=== PATIENT | male | born 1940 | race Caucasian/White ===

== ENCOUNTER 2016-06-24 11:56 | Outpatient (CLI) | payer MEDICARE | END 2016-06-24 11:57 | disposition home or self-care (01) | LOC: LAB.S 11:56 | PROVIDERS: ATTEND Emergency Medicine | DX: I48.91 Unspecified atrial fibrillation (principal) | CPT/HCPCS: 85610 ==

== ENCOUNTER 2016-08-24 08:21 | Outpatient (CLI) | payer MEDICARE | END 2016-08-24 08:22 | disposition short-term general hospital (02) | LOC: EMS 08:21 | PROVIDERS: ATTEND Surgery | DX: M54.9 Dorsalgia, unspecified (principal) | CPT/HCPCS: A0170; A0425; A0427 ==

== ENCOUNTER 2016-09-13 09:54 | Outpatient (CLI) | payer MEDICARE ==
[2016-09-13 17:48] LABS: INR 3.2 (0.8-1.2); PT - PROTHROMBIN TIME 36.3 secs (9.9-12.6)
== END 2016-09-13 09:55 | disposition home or self-care (01) ==
LOC: LAB 09:54
PROVIDERS: ATTEND Emergency Medicine
DX: I48.91 Unspecified atrial fibrillation (principal)
CPT/HCPCS: 36415; 85610

== ENCOUNTER 2016-09-17 12:37 | Outpatient (CLI) | payer MEDICARE ==
[2016-09-17 18:09] LABS: INR 3.2 (0.8-1.2)
== END 2016-09-17 12:38 | disposition home or self-care (01) ==
LOC: LAB.F 12:37
PROVIDERS: ATTEND Emergency Medicine
DX: I48.91 Unspecified atrial fibrillation (principal)
CPT/HCPCS: 36415; 85610

== ENCOUNTER 2016-09-23 13:15 | Emergency (ER) | payer MEDICARE ==
--- NOTE | 2016-09-23 13:51 | ED Physician Documentation ---
History of Present Illness - Stated complaint Stated Complaint: THROAT PX - Chief complaint Chief Complaint: Heent - History obtained from History obtained from: Patient - History of Present Illness Timing: How many days ago (10) Pain level max: 3 Pain level now: 2 Quality: aching Improved by: nothing Worsened by: lying down, palpation - Additonal information Additional information: Patient is a 76-year-old male who presents to the emergency department with several complaints. The first is a left-sided headache, that has been present for approximately the last 10 days. Rates it as a scale of 2 out of 10. He states that is worse with palpation of the scalp. Denies any visual changes, but then states that his left eye vision feels "sluggish" He is newly on warfarin for atrial fibrillation. States that he did strike his head on a towel bar a few days ago. Was told by his doctor to come in for a head CT. Patient also complains of a sore throat and left-sided ear pain. Has had some rhinorrhea and congestion. Has a mildly productive cough. Review of Systems Constitutional: denies: Fever, Chills Eyes: denies: Loss of vision, Decreased vision, Photophobia Ears: denies: Loss of hearing, Drainage/discharge Nose: reports: Rhinorrhea / runny nose, Congestion Throat: reports: Sore throat Respiratory: reports: Cough GI: denies: Abdominal Pain, Abdominal Swelling, Diarrhea, Hematemesis : denies: Dysuria Skin: denies: Rash Musculoskeletal: denies: Neck pain, Back pain Neurologic: reports: Headache, Head injury. 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 Cardiovascular: Cardiac catheterization HEENT: Other - Present Medications Home Medications: Ambulatory Orders Medication Instructions Recorded Confirmed Levothyroxine [Synthroid] 25 mcg PO DAILY 06/27/15 09/23/16 Multivitamin [Multivitamins] 1 tab PO DAILY 06/27/15 09/23/16 [place]-3 Fatty Acids [Fish Oil] 1 gm PO DAILY 06/27/15 09/23/16 Tamsulosin [Flomax] 0.4 mg PO DAILY 06/27/15 09/23/16 Warfarin [Coumadin] 7.5 mg PO DAILY 06/27/15 09/23/16 Metoprolol Tartrate 25 mg PO BID 09/23/16 09/23/16 - Allergies Allergies/Adverse Reactions: Allergies Allergy/AdvReac Type Severity Reaction Status Date / Time adhesive tape Allergy Rash Verified 09/29/15 17:21 meperidine HCl * Allergy Itching Verified 09/29/15 17:21 [From Demerol] hydromorphone HCl * AdvReac Unknown Verified 09/29/15 17:21 [From Dilaudid] - Social History Does the pt smoke?: No Smoking Status: Never smoker Does the pt drink ETOH?: No Does the pt have substance abuse?: No - Immunizations Immunizations are current?: Yes PD ED PE NORMAL - Vitals Vital signs reviewed: Yes - General General: Alert and oriented X 3, No acute distress, Well developed/nourished - HEENT HEENT: Atraumatic, PERRL, EOMI, Ears normal, Moist mucous membranes, Pharynx benign, Other (Diffusely tender palpation over the entire left side of the scalp. Not specifically along the temporal artery) - Neck Neck: Supple, no meningeal sign, No bony TTP - Cardiac Cardiac: RRR - Respiratory Respiratory: No respiratory distress, Clear bilaterally - Derm Derm: Warm and dry, No rash - Neuro Neuro: Alert and oriented X 3 - Psych Psych: Normal mood, Normal affect Results - Vitals Vitals: Vital Signs - 24 hr 09/23/16 09/23/16 13:25 14:53 Temperature 36.4 C L Heart Rate 63 56 L Respiratory 18 16 Rate Blood Pressure 130/64 128/64 O2 Saturation 96 95 Oxygen O2 Source Room air - EKG (time done) 1358 Rate: Rate (enter#) (63) Rhythm: NSR [place]: Normal Intervals: Normal [place] QRS: Normal Ischemia: Normal ST segments Computer interpretation: Agree with computer - Labs Labs: Laboratory Tests 09/23/16 09/23/16 09/23/16 14:00 14:00 14:00 WBC 5.9 RBC 4.67 L Hgb 15.1 Hct 44.2 MCV 94.7 H MCH 32.4 H MCHC 34.2 RDW 14.7 Plt Count 119 L MPV 7.7 Neut # 3.6 Lymph # 1.5 [place] # 0.5 Eos # 0.2 Baso # 0.0 Absolute Nucleated RBC 0.00 Nucleated RBCs 0.0 ESR PT 31.1 H INR 2.7 H Sodium 140 Potassium 4.2 Chloride 103 Carbon Dioxide 28 Anion Gap 9.0 BUN 19 Creatinine 1.2 Estimated GFR (MDRD) 59 L Glucose 95 Calcium 9.3 09/23/16 14:00 WBC RBC Hgb Hct MCV MCH MCHC RDW Plt Count MPV Neut # Lymph # [place] # Eos # Baso # Absolute Nucleated RBC Nucleated RBCs ESR 6 PT INR Sodium Potassium Chloride Carbon Dioxide Anion Gap BUN Creatinine Estimated GFR (MDRD) Glucose Calcium - Rads (name of study) head CT Radiology: Prelim report reviewed, EMP read contemporaneously, See rad report ( Mucosal thickening involving the anterior ethmoid air cells and frontal sinuses. Atherosclerosis of the internal carotid arteries. No evidence of an intracranial hemorrhage or depressed skull fracture. ) PD MEDICAL DECISION MAKING - ED course Complexity details: reviewed results, re-evaluated patient, considered differential, d/w patient ED course: Patient is a 76-year-old male who presents to the emergency department with several vague symptoms. He is on warfarin and did strike his head and does have a headache, therefore a CT was performed. No acute abnormality on this. No acute laboratory findings. Sed rate is normal. No evidence of temporal arteritis. No evidence of shingles. No evidence of intracranial hemorrhage. No evidence of vascular injury. He does appear to have sinusitis on CT scan. Is already on fluticasone at home. Will add Zyrtec or Claritin. Normal neurological exam currently. Patient counseled regarding signs and symptoms for which I believe and urgent re-evaluation would be necessary. Patient with good understanding of and agreement to plan and is comfortable going home at this time This document was made in part using voice recognition software. While efforts are made to proofread this document, sound alike and grammatical errors may occur. Departure - Departure Disposition: Home, Self Care Clinical Impression: Scalp tenderness Head injury Qualifiers: Encounter type: initial encounter Qualified Code(s): S09.90XA - Unspecified injury of head, initial encounter Condition: Good Instructions: ED Head Injury Closed Follow-Up: Brian Sneed MD [Primary Care Provider] - Within 1 week Comments: Return if you worsen. You are in normal sinus rhythm today. The cause of your symptoms is unclear, but may related to a viral upper respiratory infection or allergies. Discharge Date/Time: 09/23/16 14:54
[2016-09-23 14:09] LABS: BASOPHILS % (AUTO) 0.6 %; EOSINOPHILS # (AUTO) 0.2 10^3/uL (0.0-0.7); EOSINOPHILS % (AUTO) 3.5 %; HCT - HEMATOCRIT 44.2 % (42.0-52.0); HGB - HEMOGLOBIN 15.1 g/dL (14.0-18.0); LYMPHOCYTES # (AUTO) 1.5 10^3/uL (1.5-3.5); LYMPHOCYTES % (AUTO) 26.2 %; MEAN CORPUSCULAR HEMOGLOBIN 32.4 pg (27.0-31.0); MEAN CORPUSCULAR HGB CONC 34.2 g/dL (32.0-36.0); MEAN CORPUSCULAR VOLUME 94.7 fL (80.0-94.0); MEAN PLATELET VOLUME 7.7 fL (7.4-11.4); MONOCYTES # (AUTO) 0.5 10^3/uL (0.0-1.0); MONOCYTES % (AUTO) 8.3 %; NEUTROPHILS # (AUTO) 3.6 10^3/uL (1.5-6.6); NEUTROPHILS % (AUTO) 61.4 %; RED BLOOD COUNT 4.67 10^6/uL (4.70-6.10); RED CELL DISTRIBUTION WIDTH 14.7 % (12.0-15.0); UNCORRECTED WHITE BLOOD COUNT 5.9 x10^3/uL; WHITE BLOOD COUNT 5.9 x10^3/uL (4.8-10.8)
[2016-09-23 14:15] LABS: INR 2.7 (0.8-1.2); PT - PROTHROMBIN TIME 31.1 secs (9.9-12.6)
[2016-09-23 14:18] LABS: CALCIUM 9.3 mg/dL (8.5-10.3); CREATININE 1.2 mg/dL (0.6-1.2); POTASSIUM 4.2 mmol/L (3.5-5.0)
--- NOTE | 2016-09-23 14:37 | CT Preliminary Report ---
Exam: CT Head W/O IMPRESSION: Mucosal thickening involving the anterior ethmoid air cells and frontal sinuses. Atherosclerosis of the internal carotid arteries. No evidence of an intracranial hemorrhage or depressed skull fracture. [facility] SITE ID: [id number]
--- NOTE | 2016-09-23 14:40 | CT Report ---
EXAM: CT HEAD EXAM DATE: 09/23/2016 02:15 PM. CLINICAL HISTORY: Head injury 1 week ago, cont TEIXEIRA, pt on warfarin. COMPARISON: None. TECHNIQUE: Multiaxial CT images were obtained from the foramen magnum to the vertex. IV contrast: Non e. Reformats: Coronal. In accordance with CT protocol optimization, one or more of the following dose reduction techniques w ere utilized for this exam: automated exposure control, adjustment of mA and/or KV based on patient s ize, or use of iterative reconstructive technique. FINDINGS: Parenchyma: No intraparenchymal hemorrhage. No evidence of mass, midline shift, or CT findings of inf arction. [place]-white differentiation is distinct. Extraaxial Spaces: Normal for age. No subdural or epidural collections identified. Ventricles: Normal in size and position. Sinuses: There is mucosal thickening involving anterior ethmoid air cells. Mucosal thickening is seen involving the frontal sinuses. Bones: No evidence of fracture or calvarial defect. Other: There is atherosclerosis of the internal carotid arteries. IMPRESSION: Mucosal thickening involving the anterior ethmoid air cells and frontal sinuses. Atherosclerosis of the internal carotid arteries. No evidence of an intracranial hemorrhage or depressed skull fracture. [facility] Referring Provider Line: [phone] SITE ID: [id number]
[2016-09-23 14:53] VITALS: BP 128/64
== END 2016-09-23 14:54 | disposition home or self-care (01) ==
LOC: ED 13:15
DX: S09.90XA Unspecified injury of head, initial encounter (principal); W22.09XA Striking against other stationary object, initial encounter; R51 Headache; I48.91 Unspecified atrial fibrillation; Z79.01 Long term (current) use of anticoagulants
CPT/HCPCS: 36415; 70450; 80048; 85025; 85610; 85651; 93005; 93010; 99283; 99284

== ENCOUNTER 2016-10-21 08:00 | Outpatient (CLI) | payer MEDICARE | END 2016-10-21 08:01 | disposition home or self-care (01) | DX: I48.91 Unspecified atrial fibrillation (principal) ==

== ENCOUNTER 2016-12-23 08:00 | Outpatient (CLI) | payer MEDICARE ==
[2016-12-23 18:12] LABS: PT - PROTHROMBIN TIME 22.6 secs (9.9-12.6)
== END 2016-12-23 08:01 | disposition home or self-care (01) ==
LOC: LAB.S 08:00
PROVIDERS: ATTEND Emergency Medicine
DX: I48.91 Unspecified atrial fibrillation (principal)
CPT/HCPCS: 36415; 85610

== ENCOUNTER 2017-02-24 13:31 | Outpatient (CLI) | payer MEDICARE ==
[2017-02-24 18:37] LABS: INR 2.4 (0.8-1.2); PT - PROTHROMBIN TIME 25.8 secs (9.9-12.6)
== END 2017-02-24 13:32 | disposition home or self-care (01) ==
LOC: LAB.S 13:31
PROVIDERS: ATTEND Emergency Medicine
DX: I48.91 Unspecified atrial fibrillation (principal)
CPT/HCPCS: 36415; 85610

== ENCOUNTER 2017-04-21 08:00 | Outpatient (CLI) | payer MEDICARE | END 2017-04-21 08:01 | disposition home or self-care (01) | LOC: LAB.S 08:00 | PROVIDERS: ATTEND Emergency Medicine | DX: I48.91 Unspecified atrial fibrillation (principal) | CPT/HCPCS: 36415; 85610 ==

== ENCOUNTER 2017-05-17 07:34 | Emergency (ER) | payer MEDICARE ==
[2017-05-17 08:06] LABS: BASOPHILS % (AUTO) 0.7 %; EOSINOPHILS # (AUTO) 0.2 10^3/uL (0.0-0.7); HGB - HEMOGLOBIN 15.7 g/dL (14.0-18.0); LYMPHOCYTES # (AUTO) 1.7 10^3/uL (1.5-3.5); LYMPHOCYTES % (AUTO) 33.4 %; MEAN CORPUSCULAR HGB CONC 33.4 g/dL (32.0-36.0); MEAN CORPUSCULAR VOLUME 96.1 fL (80.0-94.0); MEAN PLATELET VOLUME 7.9 fL (7.4-11.4); MONOCYTES # (AUTO) 0.4 10^3/uL (0.0-1.0); NEUTROPHILS # (AUTO) 2.7 10^3/uL (1.5-6.6); NEUTROPHILS % (AUTO) 53.9 %; PLT - PLATELET COUNT 135 10^3/uL (130-450); RED BLOOD COUNT 4.91 10^6/uL (4.70-6.10); RED CELL DISTRIBUTION WIDTH 14.9 % (12.0-15.0)
[2017-05-17] MEDS ORDERED: SODIUM CHLORIDE 0.9% 1,000 ML IV ONE (08:17)
[2017-05-17 08:18] LABS: ALBUMIN 3.9 g/dL (3.2-5.5); ALBUMIN/GLOBULIN RATIO 1.5 (1.0-2.2); BILIRUBIN,TOTAL 0.8 mg/dL (0.2-1.0); CALCIUM 9.2 mg/dL (8.5-10.3); CREATININE 1.1 mg/dL (0.6-1.2); INR 2.6 (0.8-1.2); PT - PROTHROMBIN TIME 28.3 secs (9.9-12.6); TOTAL PROTEIN 6.5 g/dL (6.7-8.2)
--- NOTE | 2017-05-17 08:20 | ED Physician Documentation ---
History of Present Illness - Stated complaint Stated Complaint: RAPID HB - Chief complaint Chief Complaint: Cardiac - History obtained from History obtained from: Patient, Family - History of Present Illness Timing: Last night - Additonal information Additional information: 76-year-old male with history of intermittent atrial fibrillation who is on Coumadin as noted early this morning that his heart rate was elevated and he has some pressure on his anterior chest radiating to his back. He did not have any diaphoresis associated with this. He did note that he got up quite a few times during the night to urinate and this is unusual for him. He denies any fever or chills he has had a cough productive of some thick phlegm. He does use some Nasonex for sinus congestion he has not been using it recently. Review of Systems Constitutional: denies: Fever, Chills, Myalgias Eyes: denies: Decreased vision Ears: denies: Ear pain Nose: reports: Rhinorrhea / runny nose, Congestion Throat: denies: Sore throat Cardiac: reports: Chest pain / pressure. denies: Palpitations, Pedal edema, Calf pain Respiratory: reports: Cough. denies: Dyspnea GI: denies: Abdominal Pain, Nausea, Vomiting : reports: Frequency. 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 Cardiovascular: Cardiac catheterization HEENT: Other - Present Medications Home Medications: Ambulatory Orders Medication Instructions Recorded Confirmed Levothyroxine [Synthroid] 25 mcg PO DAILY 06/27/15 09/23/16 Multivitamin [Multivitamins] 1 tab PO DAILY 06/27/15 09/23/16 [place]-3 Fatty Acids [Fish Oil] 1 gm PO DAILY 06/27/15 09/23/16 Tamsulosin [Flomax] 0.4 mg PO DAILY 06/27/15 09/23/16 Warfarin [Coumadin] 7.5 mg PO DAILY 06/27/15 09/23/16 Metoprolol Tartrate 25 mg PO BID 09/23/16 09/23/16 Sulfamethoxazole/Trimethoprim 1 each PO BID #20 tablet 05/17/17 [Sulfamethoxazole-Tmp Ds Tablet] - Allergies Allergies/Adverse Reactions: Allergies Allergy/AdvReac Type Severity Reaction Status Date / Time adhesive tape Allergy Rash Verified 09/29/15 17:21 meperidine HCl * Allergy Itching Verified 09/29/15 17:21 [From Demerol] hydromorphone HCl * AdvReac Unknown Verified 09/29/15 17:21 [From Dilaudid] - Social History Does the pt smoke?: No Smoking Status: Never smoker Does the pt drink ETOH?: No Does the pt have substance abuse?: No - Immunizations Immunizations are current?: Yes PD ED PE NORMAL - Vitals Vital signs reviewed: Yes (tachy) - General General: Alert and oriented X 3, No acute distress, Well developed/nourished - HEENT HEENT: Atraumatic, PERRL, EOMI - Neck Neck: Supple, no meningeal sign - Cardiac Cardiac: No murmur, Other (irregularly irregular at 110) - Respiratory Respiratory: No respiratory distress, Clear bilaterally - Abdomen Abdomen: Soft, Non tender - Back Back: No CVA TTP, No spinal TTP - Derm Derm: Normal color, Warm and dry, No rash - Extremities Extremities: No deformity, No edema - Neuro Neuro: Alert and oriented X 3, No motor deficit, No sensory deficit, Normal speech Eye Opening: Spontaneous Motor: Obeys Commands Verbal: Oriented GCS Score: 15 - Psych Psych: Normal mood, Normal affect Results - Vitals Vitals: Vital Signs - 24 hr 05/17/17 05/17/17 05/17/17 07:38 10:29 10:35 Temperature 36.2 C L Heart Rate 108 H 78 76 Respiratory 20 16 16 Rate Blood Pressure 114/79 98/64 111/80 O2 Saturation 95 95 93 Oxygen O2 Source Room air - EKG (time done) 0741 Rate: Rate (enter#) (104) Rhythm: Atrial fibrillation [place]: RAD QRS: Low voltage Compare to prior EKG: Changed from prior EKG (SPT 09-23-16 rate has increased and afib has developed), Other Computer interpretation: Agree with computer - Labs Labs: Laboratory Tests 05/17/17 05/17/1718 07:55 07:55 07:55 WBC 5.0 RBC 4.91 Hgb 15.7 Hct 47.2 MCV 96.1 H MCH 32.0 H MCHC 33.4 RDW 14.9 Plt Count 135 MPV 7.9 Neut # 2.7 Lymph # 1.7 [place] # 0.4 Eos # 0.2 Baso # 0.0 Absolute Nucleated RBC 0.00 Nucleated RBC % 0.0 PT INR Sodium 139 Potassium 4.0 Chloride 103 Carbon Dioxide 24 Anion Gap 12.0 BUN 18 Creatinine 1.1 Estimated GFR (MDRD) 65 L Glucose 111 H Glycated Hemoglobin Estim Average Glucose Calcium 9.2 Total Bilirubin 0.8 AST 26 ALT 21 Alkaline Phosphatase 63 Troponin I < 0.04 Total Protein 6.5 L Albumin 3.9 Globulin 2.6 Albumin/Globulin Ratio 1.5 Lipase 24 Urine Color Urine Clarity Urine pH Ur Specific [place] Urine Protein Urine Glucose (UA) Urine Ketones Urine Occult Blood Urine Nitrite Urine Bilirubin Urine Urobilinogen Ur Leukocyte Esterase Ur Microscopic Review Urine Culture Comments 05/17/17 05/17/17 05/17/17 07:55 07:55 09:15 WBC RBC Hgb Hct MCV MCH MCHC RDW Plt Count MPV Neut # Lymph # [place] # Eos # Baso # Absolute Nucleated RBC Nucleated RBC % PT 28.3 H INR 2.6 H Sodium Potassium Chloride Carbon Dioxide Anion Gap BUN Creatinine Estimated GFR (MDRD) Glucose Glycated Hemoglobin 5.9 Estim Average Glucose 123 H Calcium Total Bilirubin AST ALT Alkaline Phosphatase Troponin I Total Protein Albumin Globulin Albumin/Globulin Ratio Lipase Urine Color YELLOW Urine Clarity CLEAR Urine pH 7.0 Ur Specific [place] 1.015 Urine Protein NEGATIVE Urine Glucose (UA) NEGATIVE Urine Ketones NEGATIVE Urine Occult Blood TRACE-LYSE Urine Nitrite NEGATIVE Urine Bilirubin NEGATIVE Urine Urobilinogen 0.2 (NORMAL) Ur Leukocyte Esterase NEGATIVE Ur Microscopic Review NOT INDICATED Urine Culture Comments NOT INDICATED - Rads (name of study) 2 veiw chest Radiology: Prelim report reviewed (Impression: 1. Clear lungs. 2. Borderline cardiomegaly. Tortuous aorta.), EMP read indepedently, See rad report Procedures - IVC sono (time) 0915 Bedside IVC sono: IVC measures (cm) (1.10), IVC collapsed c insp (cm) (complete) , Dehydration (esta 1 liter deficit) PD MEDICAL DECISION MAKING - ED course Complexity details: reviewed old records, reviewed results, re-evaluated patient , considered differential, d/w patient, d/w family ED course: 76-year-old male with intermittent atrial fibrillation has come in with an elevated heart rate. He is found to be dehydrated on interrogation of the inferior vena cava and saline is begun. He has had some urinary frequency and urine specimen is obtained as well as a chest x-ray with a history of cough. He is administered a liter of saline with no change in his pulse and he is subsequently administered 20 mg of diltiazemWith reduction in his heart rate into the 70s. He does have a history of prostatitis and he has had similar symptoms with prostatitis previously and I have discussed empiric treatment with the patient. We will place him on some Septra as she has had improvement with that previously. He does have a urologist he sees in [place]. Departure - Departure Disposition: 01 Home, Self Care Clinical Impression: Dehydration, Atrial fibrillation with RVR Prostatitis Qualifiers: Prostatitis type: acute Qualified Code(s): N41.0 - Acute prostatitis Condition: Stable Instructions: ED Afib, ED Dehydration, ED Prostatitis Follow-Up: Brian Sneed MD [Primary Care Provider] - Prescriptions: Sulfamethoxazole/Trimethoprim [Sulfamethoxazole-Tmp Ds Tablet] 1 each PO BID # 20 tablet Comments: Today we have put you on some antibiotic and because you are on Coumadin you will need to have your INR rechecked in about 3 days follow-up with your primary care doctor for this.
[2017-05-17 09:23] LABS: HB2 TOTAL 17.7 g/dL; HEMOGLOBIN A1C 0.72 g/dL; HEMOGLOBIN A1C % 5.9 % (4.6-6.2)
--- NOTE | 2017-05-17 09:34 | XRAY Report ---
EXAM: CHEST RADIOGRAPHY EXAM DATE: 05/17/2017 09:25 AM. CLINICAL HISTORY: Chest pain . COMPARISON: None. TECHNIQUE: 2 views. FINDINGS: Lungs/Pleura: No focal infiltrates, pleural effusion or pneumothorax. Minimal basilar atelectasis or scar formation noted. Mediastinum: The heart is on the upper limits of normal for size. The aorta is tortuous. Calcificatio ns are filly with the arch. Other: Multilevel degenerative changes in the thoracic spine. IMPRESSION: 1. Clear lungs. 2. Borderline cardiomegaly. Tortuous aorta. [facility] Referring Provider Line: [phone] SITE ID: [id number]
[2017-05-17 09:39] LABS: BILIRUBIN,URINE NEGATIVE (NEGATIVE); GLUCOSE, URINE (UA) NEGATIVE (NEGATIVE); KETONES,URINE (UA) NEGATIVE (NEGATIVE); LEUKOCYTE ESTERASE, URINE NEGATIVE (NEGATIVE); NITRITE,URINE NEGATIVE (NEGATIVE); OCCULT BLOOD,URINE TRACE-LYSE (NEGATIVE); PROTEIN,URINE NEGATIVE (NEGATIVE); UROBILINOGEN,URINE 0.2 (NORMAL) E.U./dL (NORMAL)
[2017-05-17 09:41] LABS: CLARITY,URINE CLEAR (CLEAR)
[2017-05-17] MEDS ORDERED: diltiaZEM INJ 5 MG/ML VIAL IVP STA (10:10)
[2017-05-17 10:36] VITALS: BP 111/80
== END 2017-05-17 11:32 | disposition home or self-care (01) ==
LOC: ED 07:34
DX: E86.0 Dehydration (principal); I48.91 Unspecified atrial fibrillation; Z79.01 Long term (current) use of anticoagulants; R53.0 Neoplastic (malignant) related fatigue; R05 Cough; G47.30 Sleep apnea, unspecified; N40.0 Benign prostatic hyperplasia without lower urinary tract symptoms; K21.9 Gastro-esophageal reflux disease without esophagitis
CPT/HCPCS: 36415; 71046; 80053; 81001; 81003; 83036; 83690; 84484; 85025; 85610; 87086; 93005; 96361; 96374; 99284

== ENCOUNTER 2017-05-19 13:35 | Outpatient (CLI) | payer MEDICARE ==
[2017-05-19 18:52] LABS: INR 2.7 (0.8-1.2); PT - PROTHROMBIN TIME 29.5 secs (9.9-12.6)
== END 2017-05-19 13:36 | disposition home or self-care (01) ==
LOC: LAB.S 13:35
PROVIDERS: ATTEND Emergency Medicine
DX: I48.91 Unspecified atrial fibrillation (principal)
CPT/HCPCS: 36415; 85610

== ENCOUNTER 2017-07-14 08:00 | Outpatient (CLI) | payer MEDICARE ==
[2017-07-14 17:57] LABS: PT - PROTHROMBIN TIME 21.9 secs (9.9-12.6)
== END 2017-07-14 08:01 ==
LOC: LAB.S 08:00
PROVIDERS: ATTEND Emergency Medicine
DX: I48.91 Unspecified atrial fibrillation (principal)
CPT/HCPCS: 36415; 85610

== ENCOUNTER 2017-08-18 08:00 | Outpatient (CLI) | payer MEDICARE ==
[2017-08-18 18:01] LABS: INR 1.6 (0.8-1.2); PT - PROTHROMBIN TIME 17.9 secs (9.9-12.6)
== END 2017-08-18 08:01 | disposition home or self-care (01) ==
LOC: LAB.S 08:00
PROVIDERS: ATTEND Emergency Medicine
DX: I48.91 Unspecified atrial fibrillation (principal)
CPT/HCPCS: 36415; 85610

== ENCOUNTER 2017-11-03 14:02 | Outpatient (CLI) | payer MEDICARE | END 2017-11-03 14:03 | disposition critical access hospital (66) | LOC: EMS 14:02 | PROVIDERS: ATTEND Surgery | DX: R07.9 Chest pain, unspecified (principal); M54.9 Dorsalgia, unspecified | CPT/HCPCS: A0425; A0427 ==

== ENCOUNTER 2017-11-03 14:43 | Emergency (ER) | payer MEDICARE ==
--- NOTE | 2017-11-03 16:06 | ED Physician Documentation ---
PD HPI CHEST PAIN - Stated complaint Stated Complaint: CHEST DISCOMFORT - Chief complaint Chief Complaint: Cardiac - History obtained from History obtained from: Patient - History of Present Illness Timing - onset: Today Timing - onset during: Rest Timing - duration: Hours Timing - details: Abrupt onset, Still present (he has had feeling of fib for few minutes at a time for the past few days. Today onset of it that has persisted. He chest pain nor lightheadedness. Has had paroxysmal atrial fib in the past with prior times it converts on its own, and has had couple cardioversions. He is not on beta blockers regularly due to lowe BP naturally. His commercial glazier has him Metoprolol to take PRN fib episodes. He had not taken it as yet.) Quality: Tightness Location: Substernal Improved by: No: Rest Associated symptoms: Palpitations. No: Shortness of air, Nausea, Feeling faint / dizzy, Cough Similar symptoms before: Diagnosis (atrial fib paroxysms.) Recently seen: Not recently seen Review of Systems Constitutional: denies: Fever, Chills, Myalgias Nose: denies: Rhinorrhea / runny nose, Congestion Throat: denies: Sore throat Cardiac: reports: Chest pain / pressure, Palpitations. 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 Cardiovascular: Cardiac catheterization HEENT: Other - Present Medications Home Medications: Ambulatory Orders Medication Instructions Recorded Confirmed Levothyroxine [Synthroid] 25 mcg PO DAILY 06/27/15 09/23/16 Multivitamin [Multivitamins] 1 tab PO DAILY 06/27/15 09/23/16 [place]-3 Fatty Acids [Fish Oil] 1 gm PO DAILY 06/27/15 09/23/16 Tamsulosin [Flomax] 0.4 mg PO DAILY 06/27/15 09/23/16 Warfarin [Coumadin] 7.5 mg PO DAILY 06/27/15 09/23/16 Metoprolol Tartrate 25 mg PO BID 09/23/16 09/23/16 Sulfamethoxazole/Trimethoprim 1 each PO BID #20 tablet 05/17/17 [Sulfamethoxazole-Tmp Ds Tablet] - Allergies Allergies/Adverse Reactions: Allergies Allergy/AdvReac Type Severity Reaction Status Date / Time adhesive tape Allergy Rash Verified 09/29/15 17:21 meperidine HCl * Allergy Itching Verified 09/29/15 17:21 [From Demerol] hydromorphone HCl * AdvReac Unknown Verified 09/29/15 17:21 [From Dilaudid] - Social History Does the pt smoke?: No Smoking Status: Never smoker Does the pt drink ETOH?: No Does the pt have substance abuse?: No - Immunizations Immunizations are current?: Yes PD ED PE NORMAL - Vitals Vital signs reviewed: Yes - General General: Alert and oriented X 3, No acute distress, Well developed/nourished - HEENT HEENT: Moist mucous membranes, Pharynx benign - Neck Neck: Supple, no meningeal sign, No adenopathy - Cardiac Cardiac: No murmur. No: RRR (irregular but normal rate in 80-90 range) - Respiratory Respiratory: Clear bilaterally - Abdomen Abdomen: Soft, Non tender - Back Back: No CVA TTP - Derm Derm: Normal color, Warm and dry - Extremities Extremities: Normal ROM s pain, No edema, No calf tenderness / cord - Neuro Neuro: Alert and oriented X 3, No motor deficit, Normal speech Results - Vitals Vitals: Vital Signs - 24 hr 11/03/17 11/03/17 11/03/17 14:44 14:50 14:57 Temperature 36.4 C L Heart Rate 76 102 H Respiratory 16 15 Rate Blood Pressure 115/71 118/74 Blood Pressure 115/71 [Right] O2 Saturation 95 93 11/03/17 11/03/17 11/03/17 16:23 18:22 19:10 Temperature Heart Rate 83 85 90 Respiratory 18 16 18 Rate Blood Pressure 106/63 108/74 105/80 Blood Pressure [Right] O2 Saturation 100 96 95 11/03/17 19:45 Temperature Heart Rate 82 Respiratory 18 Rate Blood Pressure 108/80 Blood Pressure [Right] O2 Saturation 97 Oxygen O2 Source Room air - EKG (time done) 15:05 Rate: Rate (enter#) (114) Rhythm: Atrial fibrillation [place]: Normal QRS: Normal Ischemia: Normal ST segments. No: ST elevation c/w ischemia, ST depression - Labs Labs: Laboratory Tests 11/03/17 11/03/17 11/03/17 17:00 17:00 17:00 WBC 5.8 RBC 4.57 L Hgb 14.7 Hct 45.3 MCV 99.2 H MCH 32.1 H MCHC 32.4 RDW 15.5 H Plt Count 129 L MPV 8.2 Neut # (Auto) 3.7 Lymph # (Auto) 1.4 L Mcd[place] # (Auto) 0.4 Eos # (Auto) 0.3 Baso # (Auto) 0.0 Absolute Nucleated RBC 0.00 Nucleated RBC % 0.1 PT 13.5 H INR 1.2 Sodium 140 Potassium 4.2 Chloride 106 Carbon Dioxide 26 Anion Gap 8.0 BUN 29 H Creatinine 1.1 Estimated GFR (MDRD) 65 L Glucose 102 H Calcium 8.9 Magnesium 2.1 Total Bilirubin 0.8 AST 20 ALT 21 Alkaline Phosphatase 71 B-Natriuretic Peptide Total Protein 6.1 L Albumin 3.7 Globulin 2.4 Albumin/Globulin Ratio 1.5 Lipase 28 11/03/17 17:00 WBC RBC Hgb Hct MCV MCH MCHC RDW Plt Count MPV Neut # (Auto) Lymph # (Auto) Mcd[place] # (Auto) Eos # (Auto) Baso # (Auto) Absolute Nucleated RBC Nucleated RBC % PT INR Sodium Potassium Chloride Carbon Dioxide Anion Gap BUN Creatinine Estimated GFR (MDRD) Glucose Calcium Magnesium Total Bilirubin AST ALT Alkaline Phosphatase B-Natriuretic Peptide 130 H Total Protein Albumin Globulin Albumin/Globulin Ratio Lipase PD MEDICAL DECISION MAKING - ED course Complexity details: considered differential (paroxysmal atrial fib. Currently in fib and onset seems likely today by symptoms. Rate controlled. Discussed options and we shared decision to try Procainamide first. This did not lead to conversion. Then discussed giving it a day or so (since on Coumadin already) to see if converts versus the cardioversion like he has had prior. He opted for waiting 1-2 days and see if converts with Metoprolol. ), d/w patient - Sepsis Event Vital Signs: Vital Signs - 24 hr 11/03/17 11/03/17 11/03/17 14:44 14:50 14:57 Temperature 36.4 C L Heart Rate 76 102 H Respiratory 16 15 Rate Blood Pressure 115/71 118/74 Blood Pressure 115/71 [Right] O2 Saturation 95 93 11/03/17 11/03/17 11/03/17 16:23 18:22 19:10 Temperature Heart Rate 83 85 90 Respiratory 18 16 18 Rate Blood Pressure 106/63 108/74 105/80 Blood Pressure [Right] O2 Saturation 100 96 95 11/03/17 19:45 Temperature Heart Rate 82 Respiratory 18 Rate Blood Pressure 108/80 Blood Pressure [Right] O2 Saturation 97 Oxygen O2 Source Room air Departure - Departure Disposition: Home, Self Care Clinical Impression: Paroxysmal atrial fibrillation Condition: Stable Record reviewed to determine appropriate education?: Yes Instructions: ED Afib Follow-Up: Brian Sneed MD [Primary Care Provider] - Comments: Call your commercial glazier in the morning for a follow-up appointment in the next couple of days. Return if it feels like your heart rate is going significantly fast persistently. Otherwise we will see if the atrial fibrillation resolves and converts with just the oral medication over the next day or 2. Continue your other usual medications. Your INR blood tests today is 1.2 so a little low and please take an extra dose of 5 mg Coumadin this evening. Discharge Date/Time: 11/03/17 19:48
[2017-11-03 17:12] LABS: BASOPHILS % (AUTO) 0.5 %; EOSINOPHILS # (AUTO) 0.3 10^3/uL (0.0-0.7); EOSINOPHILS % (AUTO) 5.1 %; HGB - HEMOGLOBIN 14.7 g/dL (14.0-18.0); LYMPHOCYTES # (AUTO) 1.4 10^3/uL (1.5-3.5); LYMPHOCYTES % (AUTO) 24.2 %; MEAN CORPUSCULAR HEMOGLOBIN 32.1 pg (27.0-31.0); MEAN CORPUSCULAR HGB CONC 32.4 g/dL (32.0-36.0); MEAN CORPUSCULAR VOLUME 99.2 fL (80.0-94.0); MEAN PLATELET VOLUME 8.2 fL (7.4-11.4); MONOCYTES # (AUTO) 0.4 10^3/uL (0.0-1.0); MONOCYTES % (AUTO) 6.8 %; NEUTROPHILS # (AUTO) 3.7 10^3/uL (1.5-6.6); NEUTROPHILS % (AUTO) 63.4 %; PLT - PLATELET COUNT 129 10^3/uL (130-450); RED BLOOD COUNT 4.57 10^6/uL (4.70-6.10); RED CELL DISTRIBUTION WIDTH 15.5 % (12.0-15.0); WHITE BLOOD COUNT 5.8 x10^3/uL (4.8-10.8)
[2017-11-03 17:25] LABS: ALBUMIN 3.7 g/dL (3.2-5.5); ALBUMIN/GLOBULIN RATIO 1.5 (1.0-2.2); BILIRUBIN,TOTAL 0.8 mg/dL (0.2-1.0); CALCIUM 8.9 mg/dL (8.5-10.3); CREATININE 1.1 mg/dL (0.6-1.2); MAGNESIUM 2.1 mg/dL (1.7-2.8); TOTAL PROTEIN 6.1 g/dL (6.7-8.2)
[2017-11-03 17:51] LABS: INR 1.2 (0.8-1.2); PT - PROTHROMBIN TIME 13.5 secs (9.9-12.6)
[2017-11-03] MEDS: SODIUM CHLORIDE 0.9% 1,000 ML IV ONE (18:00)
[2017-11-03] MEDS: PROCAINAMIDE 1,000 MG in SODIUM CHLORIDE 0.9% 240 ML IV SCH (18:03)
[2017-11-03 19:46] VITALS: BP 108/80
== END 2017-11-03 19:48 | disposition home or self-care (01) ==
LOC: EDUNIT# → ED 14:43
DX: I48.0 Paroxysmal atrial fibrillation (principal); Z79.01 Long term (current) use of anticoagulants
CPT/HCPCS: 36415; 80053; 83690; 83735; 83880; 85025; 85610; 93005; 96365; 99284; J2690

== ENCOUNTER 2017-11-04 15:35 | Outpatient (CLI) | payer MEDICARE | END 2017-11-04 15:36 | disposition critical access hospital (66) | LOC: EMS 15:35 | PROVIDERS: ATTEND Surgery | DX: R09.89 Other specified symptoms and signs involving the circulatory and respiratory systems (principal); R42 Dizziness and giddiness | CPT/HCPCS: A0425; A0427 ==

== ENCOUNTER 2017-11-04 16:13 | Emergency (ER) | payer MEDICARE ==
--- NOTE | 2017-11-04 16:31 | ED Physician Documentation ---
PD HPI DYSPNEA - Stated complaint Stated Complaint: Abnormal heart rate - History obtained from History obtained from: Patient, EMS - History of Present Illness Timing - onset: How many days ago (2) Timing - onset during: Rest Inciting event(s): Other (he was just seen yesterday in ED with this, and was to see if it would convert with oral meds. Procan in the ED did not convert it. Deferred cardioversion at the time. He is still feeling the atrial fib and is feeling some dyspnea/ lightheaded today. EMS found blood sugar low (not diabetic ), and heart rate about 120s. They gave diltiazem and he changed to atrial flutter 4:1. Arrives with low BP (presume diltiazem and he has low BP anyway).) Associated symptoms: No: Fever, Cough, Wheezing, Bilateral edema Similar symptoms before: Diagnosis (atrial fib episodes and is on Warfarin. He has not tolerated low dose beta blockers due to low BP so has metoprolol PRN to take. Not on antiarrhytmics, and I suggest that he talk with his activities manager about dig or amiodarone or such.) Recently seen: Emergency Dept (yesterday - he called to get appt with Cardiology /PCP, but he was feeling symptoms of dyspnea so they told him to come to the ER. ) Review of Systems Constitutional: denies: Fever, Chills Nose: denies: Rhinorrhea / runny nose, Congestion Throat: denies: Sore throat Cardiac: reports: Palpitations. denies: Pedal edema, Calf pain Respiratory: reports: Dyspnea. denies: Cough GI: denies: Abdominal Pain, Nausea, Vomiting, Diarrhea Musculoskeletal: denies: Neck pain, Back pain Neurologic: reports: Generalized weakness. 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 Cardiovascular: Cardiac catheterization HEENT: Other - Present Medications Home Medications: Ambulatory Orders Medication Instructions Recorded Confirmed Levothyroxine [Synthroid] 25 mcg PO DAILY 06/27/15 09/23/16 Multivitamin [Multivitamins] 1 tab PO DAILY 06/27/15 09/23/16 [place]-3 Fatty Acids [Fish Oil] 1 gm PO DAILY 06/27/15 09/23/16 Tamsulosin [Flomax] 0.4 mg PO DAILY 06/27/15 09/23/16 Warfarin [Coumadin] 7.5 mg PO DAILY 06/27/15 09/23/16 Metoprolol Tartrate 25 mg PO BID 09/23/16 09/23/16 Sulfamethoxazole/Trimethoprim 1 each PO BID #20 tablet 05/17/17 [Sulfamethoxazole-Tmp Ds Tablet] - Allergies Allergies/Adverse Reactions: Allergies Allergy/AdvReac Type Severity Reaction Status Date / Time adhesive tape Allergy Rash Verified 11/04/17 16:38 meperidine HCl * Allergy Itching Verified 11/04/17 16:38 [From Demerol] hydromorphone HCl * AdvReac Unknown Verified 11/04/17 16:38 [From Dilaudid] - Social History Does the pt smoke?: No Smoking Status: Never smoker Does the pt drink ETOH?: No Does the pt have substance abuse?: No - Immunizations Immunizations are current?: Yes PD ED PE NORMAL - Vitals Vital signs reviewed: Yes - General General: Alert and oriented X 3, No acute distress, Well developed/nourished - HEENT HEENT: Moist mucous membranes, Pharynx benign - Neck Neck: Supple, no meningeal sign, No adenopathy - Cardiac Cardiac: RRR, No murmur - Respiratory Respiratory: No respiratory distress, Clear bilaterally - Abdomen Abdomen: Soft, Non tender - Derm Derm: Normal color, Warm and dry - Extremities Extremities: No tenderness to palpate, Normal ROM s pain, No edema, No calf tenderness / cord - Neuro Neuro: Alert and oriented X 3, No motor deficit, Normal speech Results - Vitals Vitals: Vital Signs - 24 hr 11/04/17 11/04/17 11/04/17 16:34 18:10 18:15 Temperature 36.3 C L Heart Rate 63 86 91 Respiratory 11 L 20 16 Rate Blood Pressure 94/69 121/78 O2 Saturation 95 98 11/04/17 11/04/17 11/04/17 18:20 18:25 18:26 Temperature Heart Rate 45 L 48 L 45 L Respiratory 12 20 16 Rate Blood Pressure 106/70 98/60 O2 Saturation 100 93 11/04/17 11/04/17 11/04/17 18:35 18:40 19:21 Temperature 36.3 C L Heart Rate 46 L 47 L 47 L Respiratory 14 15 15 Rate Blood Pressure 91/64 98/58 L 112/81 H O2 Saturation 98 96 98 11/04/17 19:22 Temperature 36.3 C L Heart Rate Respiratory Rate Blood Pressure O2 Saturation Oxygen O2 Source Room air - EKG (time done) 16:45 Rate: Rate (enter#) (61) Rhythm: Atrial flutter [place]: Normal Ischemia: Normal ST segments. No: ST elevation c/w ischemia, ST depression - Labs Labs: Laboratory Tests 11/04/17 11/04/17 17:05 17:05 Sodium 140 Potassium 4.0 Chloride 108 Carbon Dioxide 27 Anion Gap 5.0 L BUN 26 H Creatinine 1.3 H Estimated GFR (MDRD) 53 L Glucose 100 Calcium 8.6 Magnesium 1.8 B-Natriuretic Peptide 382 H Procedures - Cardioversion 18:11 Time of attempt: 18:11 Indication: Tachyarrhythmia Risks, benefits, alternatives explained to: Pt Prep: IV, O2, continuous churn buttermaker, Pulse ox, Airway equip Meds: Propofol CS via: Pads Sync: Biphasic, 200j Post cardioversion rhythm: NSR Complications: No: Contact burn, Apnea, Hypotension Performed by: ED MD PD MEDICAL DECISION MAKING - ED course Complexity details: considered differential, d/w patient, d/w cassandra consultant ( Cardiology net front end developer for [facility] for ? starting antiarrhythmic such as dig. He said amiodarone would be more likely and would want to initiate it after office visit, so to keep with just beta juvenal for now (25 mg daily or just the PRN if his BP does not tolerate it).) - Sepsis Event Vital Signs: Vital Signs - 24 hr 11/04/17 11/04/17 11/04/17 16:34 18:10 18:15 Temperature 36.3 C L Heart Rate 63 86 91 Respiratory 11 L 20 16 Rate Blood Pressure 94/69 121/78 O2 Saturation 95 98 11/04/17 11/04/17 11/04/17 18:20 18:25 18:26 Temperature Heart Rate 45 L 48 L 45 L Respiratory 12 20 16 Rate Blood Pressure 106/70 98/60 O2 Saturation 100 93 11/04/17 11/04/17 11/04/17 18:35 18:40 19:21 Temperature 36.3 C L Heart Rate 46 L 47 L 47 L Respiratory 14 15 15 Rate Blood Pressure 91/64 98/58 L 112/81 H O2 Saturation 98 96 98 11/04/17 19:22 Temperature 36.3 C L Heart Rate Respiratory Rate Blood Pressure O2 Saturation Oxygen O2 Source Room air Departure - Departure Disposition: Home, Self Care Clinical Impression: Atrial flutter Qualifiers: Atrial flutter type: unspecified Qualified Code(s): I48.92 - Unspecified atrial flutter Condition: Stable Record reviewed to determine appropriate education?: Yes Instructions: ED Afib Follow-Up: Brian Sneed MD [Primary Care Provider] - Comments: I talked to the on-call activities manager for [facility] in the did not want to initiate an antiarrhythmic medication without better evaluation of the EKG and the your history. He suggested continuing with the metoprolol as needed and drink lots of fluids. Follow-up with the [facility] cardiology, call tomorrow for an appointment. They likely will initiate some antiarrhythmic medication given the scenario. Discharge Date/Time: 11/04/17 19:32
[2017-11-04] MEDS ORDERED: SODIUM CHLORIDE 0.9% 1,000 ML IV ONE (17:03)
[2017-11-04] MEDS ORDERED: PROPOFOL 200 MG/20 ML VIAL IVP STA (17:03)
[2017-11-04 17:26] LABS: CALCIUM 8.6 mg/dL (8.5-10.3); CREATININE 1.3 mg/dL (0.6-1.2); MAGNESIUM 1.8 mg/dL (1.7-2.8)
[2017-11-04 19:23] VITALS: BP 112/81
== END 2017-11-04 19:32 | disposition home or self-care (01) ==
LOC: EDUNIT# → SUPCPDRO 16:13 → ED 16:13
DX: I48.92 Unspecified atrial flutter (principal); I48.91 Unspecified atrial fibrillation; Z79.01 Long term (current) use of anticoagulants; Z96.659 Presence of unspecified artificial knee joint
CPT/HCPCS: 36415; 80048; 83735; 83880; 92960; 93005; 94770; 96360; 99284

== ENCOUNTER → 2018-02-23 | Outpatient (CLI) | payer MEDICARE ==
[2018-02-23 18:13] LABS: INR 3.7 (0.8-1.2); PT - PROTHROMBIN TIME 41.2 secs (9.9-12.6)
== END ==
LOC: LAB.S 13:57
PROVIDERS: ATTEND Emergency Medicine
DX: I48.91 Unspecified atrial fibrillation (principal)
CPT/HCPCS: 36415; 85610

== ENCOUNTER 2018-03-02 14:27 | Outpatient (CLI) | payer MEDICARE | END 2018-03-02 14:28 | disposition home or self-care (01) | LOC: LAB.F 14:27 | PROVIDERS: ATTEND Emergency Medicine | DX: I48.91 Unspecified atrial fibrillation (principal) | CPT/HCPCS: 85610 ==

== ENCOUNTER 2018-04-13 08:00 | Outpatient (CLI) | payer MEDICARE ==
[2018-04-13 18:04] LABS: INR 2.1 (0.8-1.2); PT - PROTHROMBIN TIME 24.1 secs (9.9-12.6)
== END 2018-04-13 23:59 | disposition home or self-care (01) ==
LOC: LAB.S 08:00
PROVIDERS: ATTEND Emergency Medicine
DX: I48.91 Unspecified atrial fibrillation (principal); R97.20 Elevated prostate specific antigen [PSA]
CPT/HCPCS: 36415; 84153; 85610

== ENCOUNTER 2018-06-15 08:00 | Outpatient (CLI) | payer MEDICARE | END 2018-06-15 23:59 | disposition home or self-care (01) | LOC: LAB.S 08:00 | PROVIDERS: ATTEND Emergency Medicine | DX: I48.91 Unspecified atrial fibrillation (principal) | CPT/HCPCS: 85610 ==

== ENCOUNTER 2018-07-06 08:00 | Outpatient (CLI) | payer MEDICARE | END 2018-07-06 23:59 | disposition home or self-care (01) | LOC: LAB.S 08:00 | PROVIDERS: ATTEND Emergency Medicine | DX: I48.91 Unspecified atrial fibrillation (principal) | CPT/HCPCS: 85610 ==

== ENCOUNTER 2018-09-28 08:00 | Outpatient (CLI) | payer MEDICARE | END 2018-09-28 08:01 | disposition home or self-care (01) | LOC: LAB.S 08:00 | PROVIDERS: ATTEND Emergency Medicine | DX: I48.91 Unspecified atrial fibrillation (principal) | CPT/HCPCS: 85610 ==

== ENCOUNTER 2018-10-19 13:29 | Outpatient (CLI) | payer MEDICARE | END 2018-10-19 13:30 | disposition home or self-care (01) | LOC: LAB.S 13:29 | PROVIDERS: ATTEND Emergency Medicine | DX: I48.91 Unspecified atrial fibrillation (principal) | CPT/HCPCS: 85610 ==

== ENCOUNTER 2018-11-06 14:07 | Outpatient (CLI) | payer MEDICARE | END 2018-11-06 14:08 | disposition home or self-care (01) | LOC: LAB.S 14:07 | PROVIDERS: ATTEND Emergency Medicine | DX: Z53.9 Procedure and treatment not carried out, unspecified reason (principal) ==

== ENCOUNTER 2018-11-20 14:04 | Outpatient (CLI) | payer MEDICARE | END 2018-11-20 14:05 | disposition home or self-care (01) | LOC: LAB.S 14:04 | PROVIDERS: ATTEND Emergency Medicine | DX: I48.91 Unspecified atrial fibrillation (principal) | CPT/HCPCS: 85610 ==

== ENCOUNTER 2018-11-23 15:10 | Outpatient (CLI) | payer MEDICARE | END 2018-11-23 15:11 | disposition home or self-care (01) | LOC: LAB.S 15:10 | PROVIDERS: ATTEND Emergency Medicine | DX: I48.91 Unspecified atrial fibrillation (principal) | CPT/HCPCS: 85610 ==

== ENCOUNTER 2018-11-27 11:53 | Outpatient (CLI) | payer MEDICARE | END 2018-11-27 11:54 | disposition home or self-care (01) | LOC: LAB.S 11:53 | PROVIDERS: ATTEND Emergency Medicine | DX: I48.91 Unspecified atrial fibrillation (principal) | CPT/HCPCS: 85610 ==

== ENCOUNTER 2019-01-12 13:52 | Outpatient (CLI) | payer MEDICARE | END 2019-01-12 13:53 | disposition home or self-care (01) | LOC: LAB.S 13:52 | PROVIDERS: ATTEND Emergency Medicine | DX: I48.91 Unspecified atrial fibrillation (principal) | CPT/HCPCS: 85610 ==

== ENCOUNTER 2019-02-15 12:08 | Outpatient (CLI) | payer MEDICARE | END 2019-02-15 12:09 | disposition home or self-care (01) | LOC: LAB.S 12:08 | PROVIDERS: ATTEND Emergency Medicine | DX: I48.91 Unspecified atrial fibrillation (principal) | CPT/HCPCS: 85610 ==

== ENCOUNTER 2019-03-26 10:52 | Outpatient (CLI) | payer MEDICARE | END 2019-03-26 10:53 | disposition home or self-care (01) | LOC: LAB.S 10:52 | PROVIDERS: ATTEND Emergency Medicine | DX: I48.91 Unspecified atrial fibrillation (principal) | CPT/HCPCS: 85610 ==

== ENCOUNTER 2019-06-08 13:52 | Outpatient (CLI) | payer MEDICARE | END 2019-06-08 13:53 | disposition home or self-care (01) | LOC: LAB.S 13:52 | PROVIDERS: ATTEND Emergency Medicine | DX: I48.91 Unspecified atrial fibrillation (principal) | CPT/HCPCS: 85610 ==

== ENCOUNTER 2019-07-09 10:33 | Emergency (ER) | payer MEDICARE ==
--- NOTE | 2019-07-09 10:44 | ED Physician Documentation ---
PD HPI DYSPNEA - Stated complaint Stated Complaint: BLOOD PRESSURE CONCERNS - Chief complaint Chief Complaint: Cardiac - History obtained from History obtained from: Patient - History of Present Illness Timing - onset: How many hours ago (4), Today Timing - onset during: Rest, Light activity Timing - duration: Hours (4) Timing - details: Abrupt onset (onset of pressure feeling in chest/back and noted heart rate fast at about 120. This persisted for several hours. Has had it happen shorter periods in the recent past and then would stop. Has been to ER couple times this past year with rapid atrial fib and was cardioverted into NSR. Saw Cardiology at [facility], and was on Metoprolol for awhile but had problems with HR too slow at times. Is currently just on Coumadin and no rate/rhythm meds per se.), Still present Inciting event(s): No: URI, Immobilization/travel Improved by: No: Rest Worsened by: Exertion (feels HR fast with walking around this morning. Has had brief episodes at times the past few months, sometimes with exertion like e xercise or walking up stairs. Will last just few minutes at a time.) Associated symptoms: Palpitations (feeling of heart rate fast at times. Not skipping per se.). No: Fever, Cough, Hemoptysis, Wheezing, Bilateral edema Similar symptoms before: Diagnosis (atrial fib paroxysmal in the past with 2 prior cardioversions in the ER.) Recently seen: Not recently seen Review of Systems Constitutional: denies: Fever, Chills Nose: denies: Rhinorrhea / runny nose, Congestion Throat: denies: Sore throat Cardiac: reports: Chest pain / pressure (this morning). 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 Cardiovascular: Cardiac catheterization HEENT: Other - Present Medications Home Medications: Ambulatory Orders Medication Instructions Recorded Confirmed Levothyroxine [Synthroid] 25 mcg PO DAILY 06/27/15 09/23/16 Multivitamin [Multivitamins] 1 tab PO DAILY 06/27/15 09/23/16 [place]-3 Fatty Acids [Fish Oil] 1 gm PO DAILY 06/27/15 09/23/16 Tamsulosin [Flomax] 0.4 mg PO DAILY 06/27/15 09/23/16 Warfarin [Coumadin] 7.5 mg PO DAILY 06/27/15 09/23/16 Metoprolol Tartrate 25 mg PO BID 09/23/16 09/23/16 Sulfamethoxazole/Trimethoprim 1 each PO BID #20 tablet 05/17/17 [Sulfamethoxazole-Tmp Ds Tablet] diltiaZEM CD [Cardizem Cd] 240 mg PO DAILY #30 capsule 07/09/19 - Allergies Allergies/Adverse Reactions: Allergies Allergy/AdvReac Type Severity Reaction Status Date / Time adhesive tape Allergy Rash Verified 07/09/19 10:41 meperidine HCl * Allergy Itching Verified 07/09/19 10:41 [From Demerol] hydromorphone HCl * AdvReac Unknown Verified 07/09/19 10:41 [From Dilaudid] - Social History Does the pt smoke?: No Smoking Status: Never smoker Does the pt drink ETOH?: No Does the pt have substance abuse?: No - Immunizations Immunizations are current?: Yes PD ED PE NORMAL - Vitals Vital signs reviewed: Yes - General General: Alert and oriented X 3, No acute distress, Well developed/nourished - HEENT HEENT: Moist mucous membranes, Pharynx benign - Neck Neck: Supple, no meningeal sign, No adenopathy - Cardiac Cardiac: No murmur. No: RRR (regular but tachycardic at 113 unwaveringly, most c/w atrial flutter. ) - Respiratory Respiratory: Clear bilaterally - Abdomen Abdomen: Normal bowel sounds, Soft, Non tender - Derm Derm: Normal color, Warm and dry - Extremities Extremities: No edema, No calf tenderness / cord - Neuro Neuro: Alert and oriented X 3, No motor deficit, Normal speech Eye Opening: Spontaneous Motor: Obeys Commands Verbal: Oriented GCS Score: 15 - Psych Psych: Normal mood Results - Vitals Vitals: Vital Signs - 24 hr 03/27/20 03/27/20 03/27/20 10:37 10:56 11:35 Temperature 36.6 C Heart Rate 115 H 114 H 115 H Respiratory 17 11 L 11 L Rate Blood Pressure 122/86 H 126/89 H O2 Saturation 95 94 94 07/09/19 07/09/19 07/09/19 11:48 11:57 13:00 Temperature Heart Rate 96 77 81 Respiratory 16 19 16 Rate Blood Pressure 129/95 H 110/71 123/78 O2 Saturation 93 92 92 07/09/19 07/09/19 13:45 14:58 Temperature 36.6 C Heart Rate 114 H 88 Respiratory 18 16 Rate Blood Pressure 126/93 H 124/88 H O2 Saturation 97 98 Oxygen O2 Source Nasal cannula - EKG (time done) 10:51 Rate: Rate (enter#) (113) Rhythm: Atrial flutter QRS: Normal Ischemia: Normal ST segments. No: ST elevation c/w ischemia, ST depression 14:03 Rate: Rate (enter#) (100) Rhythm: Atrial fibrillation [place]: Normal QRS: Normal Ischemia: Normal ST segments. No: ST elevation c/w ischemia, ST depression Compare to prior EKG: Changed from prior EKG (from flutter to fib and now rate controlled. ) - Labs Labs: Laboratory Tests 07/09/19 07/09/19 07/09/19 11:18 11:32 11:32 WBC 4.5 L RBC 4.91 Hgb 16.0 Hct 47.9 MCV 97.6 H MCH 32.6 H MCHC 33.4 RDW 13.7 Plt Count 148 MPV 9.9 Neut # (Auto) 2.6 Lymph # (Auto) 1.4 L [place] # (Auto) 0.4 Eos # (Auto) 0.2 Baso # (Auto) 0.0 Absolute Nucleated RBC 0.00 Nucleated RBC % 0.0 PT 31.8 H INR 3.0 H Sodium 142 Potassium 4.1 Chloride 105 Carbon Dioxide 27 Anion Gap 10.0 BUN 18 Creatinine 1.3 H Estimated GFR (MDRD) 53 L Glucose 115 H Calcium 9.1 Magnesium 2.2 Total Bilirubin 0.5 AST 20 ALT 19 Alkaline Phosphatase 57 B-Natriuretic Peptide Total Protein 6.6 L Albumin 3.9 Globulin 2.7 Albumin/Globulin Ratio 1.4 Lipase 24 TSH Urine Color Urine Clarity Urine pH Ur Specific [place] Urine Protein Urine Glucose (UA) Urine Ketones Urine Occult Blood Urine Nitrite Urine Bilirubin Urine Urobilinogen Ur Leukocyte Esterase Urine RBC Urine WBC Ur Squamous Epith Cells Urine Bacteria Urine Casts Ur Microscopic Review Urine Culture Comments 07/09/19 07/09/19 07/09/19 11:32 11:32 12:10 WBC RBC Hgb Hct MCV MCH MCHC RDW Plt Count MPV Neut # (Auto) Lymph # (Auto) [place] # (Auto) Eos # (Auto) Baso # (Auto) Absolute Nucleated RBC Nucleated RBC % PT INR Sodium Potassium Chloride Carbon Dioxide Anion Gap BUN Creatinine Estimated GFR (MDRD) Glucose Calcium Magnesium Total Bilirubin AST ALT Alkaline Phosphatase B-Natriuretic Peptide 136 H Total Protein Albumin Globulin Albumin/Globulin Ratio Lipase TSH 2.48 Urine Color YELLOW Urine Clarity CLEAR Urine pH 7.0 Ur Specific [place] 1.010 Urine Protein NEGATIVE Urine Glucose (UA) NEGATIVE Urine Ketones NEGATIVE Urine Occult Blood SMALL H Urine Nitrite NEGATIVE Urine Bilirubin NEGATIVE Urine Urobilinogen 0.2 (NORMAL) Ur Leukocyte Esterase NEGATIVE Urine RBC 0-5 Urine WBC 0-3 Ur Squamous Epith Cells NONE SEEN Urine Bacteria None Seen Urine Casts 0-2 Hyaline Casts Ur Microscopic Review INDICATED Urine Culture Comments NOT INDICATED - Rads (name of study) chest xray Radiology: Prelim report reviewed (no acute process), See rad report Procedures - Procedural sedation Sedation prep: Informed consent, Last meal (last evening), PE performed, AHA 2 - mild disease Sedation medications: propofol Patient status during sedation: Responds to verbal, Responds to tactile, Vitals remained stable, Maintained airway, Recovered uneventfully. 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, Airway equip Meds: Propofol CS via: Pads, AP approach Sync: Biphasic, 100j Post cardioversion rhythm: A-fib Complications: No: Contact burn, Apnea, Hypotension Performed by: ED MD 2 Indication: Tachyarrhythmia Sync: 150j Post cardioversion rhythm: A-fib 3 Indication: Tachyarrhythmia Sync: Biphasic, 200j Post cardioversion rhythm: A-fib Complications: No: Contact burn, Apnea, Hypotension Performed by: ED PD MEDICAL DECISION MAKING - ED course Complexity details: considered differential (Patient is converted from atrial flutter to atrial fib and heart rate is rate controlled under 100 with prior Diltiazem. BP is okay. I talked with [facility] validation manager, who suggested Diltiazem 240 mg daily and see [facility] he has seen before next week. He is already on Coumadin. ), d/w patient Departure - Departure Disposition: 01 Home, Self Care Clinical Impression: Paroxysmal atrial fibrillation, Anticoagulant long-term use Condition: Stable Record reviewed to determine appropriate education?: Yes Instructions: ED Afib Follow-Up: Brian Sneed MD [Primary Care Provider] - Prescriptions: diltiaZEM CD [Cardizem Cd] 240 mg PO DAILY #30 capsule Comments: I talked with Shelley Ashley on-call cardiology for [facility]. She recommended continuing on your Coumadin and staying well-hydrated and starting diltiazem 240 mg daily. Hold it or cut it in half if you are feeling lightheaded or your blood pressure is too low. Call the [facility] office as you have seen before and make an appointment for next week, and tell the client services analyst there that they had advised a follow-up in that timeframe. We did try cardioversion you and it changed from flutter to fibrillation which is pretty close to the same thing. The oral medication should control the rate of this a little bit easier in fibrillation then in flutter. The atrial fibrillation often will convert itself after several days with the rate control medications, so see what its like and follow-up next week. Return if worsening symptoms overall. Discharge Date/Time: 07/09/19 14:58
[2019-07-09] MEDS ORDERED: diltiaZEM INJ 5 MG/ML VIAL IVP STA ×2 (11:17→12:32)
[2019-07-09] MEDS ORDERED: SODIUM CHLORIDE 0.9% 1,000 ML IV ONE (11:18)
[2019-07-09 11:46] LABS: BASOPHILS % (AUTO) 0.7 %; EOSINOPHILS # (AUTO) 0.2 10^3/uL (0.0-0.7); EOSINOPHILS % (AUTO) 3.5 %; LYMPHOCYTES # (AUTO) 1.4 10^3/uL (1.5-3.5); LYMPHOCYTES % (AUTO) 30.4 %; MEAN CORPUSCULAR HEMOGLOBIN 32.6 pg (27.0-31.0); MEAN CORPUSCULAR HGB CONC 33.4 g/dL (32.0-36.0); MEAN CORPUSCULAR VOLUME 97.6 fL (80.0-94.0); MEAN PLATELET VOLUME 9.9 fL (7.4-11.4); MONOCYTES # (AUTO) 0.4 10^3/uL (0.0-1.0); MONOCYTES % (AUTO) 8.2 %; NEUTROPHILS # (AUTO) 2.6 10^3/uL (1.5-6.6); PLT - PLATELET COUNT 148 10^3/uL (130-450); RED BLOOD COUNT 4.91 10^6/uL (4.70-6.10); RED CELL DISTRIBUTION WIDTH 13.7 % (12.0-15.0); WHITE BLOOD COUNT 4.5 x10^3/uL (4.8-10.8)
--- NOTE | 2019-07-09 11:47 | XRAY Report ---
Reason: fast heart rate Procedure Date: 07/09/2019 Accession Number: [id number] / [id number] Procedure: XR - Chest 1 View X-Ray CPT Code: 15938 Final Report FULL RESULT: EXAM: CHEST RADIOGRAPHY EXAM DATE: 07/09/2019 11:41 AM. CLINICAL HISTORY: Fast heart rate. Chest pressure starting today. COMPARISON: CHEST 2 VIEW 05/17/2017 8:51 AM. TECHNIQUE: 1 view. FINDINGS: Lungs/Pleura: Lungs are without infiltrate. Mediastinum: Heart size is top normal. Other: Healed fractures left posterolateral fifth, sixth and seventh ribs. IMPRESSION: Negative for active cardiopulmonary process. RADIA
[2019-07-09 11:55] LABS: ALBUMIN 3.9 g/dL (3.2-5.5); ALBUMIN/GLOBULIN RATIO 1.4 (1.0-2.2); BILIRUBIN,TOTAL 0.5 mg/dL (0.2-1.0); CALCIUM 9.1 mg/dL (8.5-10.3); CREATININE 1.3 mg/dL (0.6-1.2); MAGNESIUM 2.2 mg/dL (1.7-2.8); TOTAL PROTEIN 6.6 g/dL (6.7-8.2)
[2019-07-09 12:30] LABS: BILIRUBIN,URINE NEGATIVE (NEGATIVE); GLUCOSE, URINE (UA) NEGATIVE (NEGATIVE); KETONES,URINE (UA) NEGATIVE (NEGATIVE); LEUKOCYTE ESTERASE, URINE NEGATIVE (NEGATIVE); NITRITE,URINE NEGATIVE (NEGATIVE); OCCULT BLOOD,URINE SMALL (NEGATIVE); PROTEIN,URINE NEGATIVE (NEGATIVE); UROBILINOGEN,URINE 0.2 (NORMAL) E.U./dL (NORMAL)
[2019-07-09 12:31] LABS: CLARITY,URINE CLEAR (CLEAR)
[2019-07-09 12:39] LABS: BACTERIA,URINE None Seen /HPF (None Seen); CASTS, URINE 0-2 Hyaline Casts /LPF; RBC,URINE 0-5 /HPF (0-5); SQUAMOUS EPITHELIAL CELL,UR NONE SEEN (<= Few)
[2019-07-09] MEDS ORDERED: PROPOFOL 200 MG/20 ML VIAL IVP STA (13:07)
[2019-07-09] MEDS ORDERED: diltiaZEM CD 120 MG CAPSULE PO STA (14:18)
[2019-07-09 14:25] LABS: PT - PROTHROMBIN TIME 31.8 secs (9.9-12.6)
[2019-07-09 14:59] VITALS: BP 124/88
== END 2019-07-09 14:58 | disposition home or self-care (01) ==
LOC: ED 10:33
DX: I48.0 Paroxysmal atrial fibrillation (principal); Z79.01 Long term (current) use of anticoagulants
CPT/HCPCS: 36415; 71045; 80053; 81001; 83690; 83735; 83880; 84443; 85025; 85610; 92960; 93005; 96361; 96374; 96376; 99284; 99285; A9270; 81003; 87086; 94770

== ENCOUNTER 2019-09-15 12:11 | Outpatient (CLI) | payer MEDICARE ==
[2019-09-15 13:28] LABS: ALT ALANINE AMINOTRANSFERASE 20 IU/L (10-60); AST ASPARTATE AMINOTRANSFERASE 19 IU/L (10-42); LDL CHOLESTEROL,DIRECT 63 mg/dL
[2019-09-17 22:49] LABS: HDL LARGE 4579 nmol/L (>6729); LDL PARTICLE NUMBER 878 nmol/L (<1138); LDL PATTERN B Pattern (A); LDL PEAK SIZE 210.9 Angstrom (>222.9); LDL SMALL 174 nmol/L (<142)
== END 2019-09-15 12:12 | disposition home or self-care (01) ==
LOC: RT 12:11
PROVIDERS: ATTEND Internal Medicine Cardiovascular Disease
DX: I48.0 Paroxysmal atrial fibrillation (principal); E78.00 Pure hypercholesterolemia, unspecified; E78.5 Hyperlipidemia, unspecified
CPT/HCPCS: 36415; 83704; 83721; 84450; 84460; 85610; 93005

== ENCOUNTER 2019-12-13 13:26 | Outpatient (CLI) | payer MEDICARE | END 2019-12-13 13:27 | disposition home or self-care (01) | LOC: LAB.S 13:26 | PROVIDERS: ATTEND Emergency Medicine | DX: I48.91 Unspecified atrial fibrillation (principal) | CPT/HCPCS: 85610 ==

== ENCOUNTER 2019-12-17 06:03 | Emergency (ER) | payer MEDICARE ==
--- NOTE | 2019-12-17 06:20 | ED Physician Documentation ---
PD HPI LOWER EXT INJURY - Stated complaint Stated Complaint: KNEE PX/FALL - Chief complaint Chief Complaint: Ext Problem - History obtained from History obtained from: Patient - History of Present Illness PD HPI LOW EXT INJURY LOCATION: Left, Knee Type of injury: Fall Where injury occurred: Other Timing - onset: How many days ago (2) Timing - details: Abrupt onset Pain level now: 6 Improved by: Rest, Immobilization Worsened by: Moving, Palpating Associated symptoms: Swelling. No: Weakness, Numbness Contributing factors: Anticoagulated Recently seen: Not recently seen - Additional information Additional information: 2 days ago, tripped over trailer hitch at [employer], fell onto left knee which caused immediate pain and gradual, progressive swelling. 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 Cardiovascular: Cardiac catheterization HEENT: Other - Present Medications Home Medications: Ambulatory Orders Medication Instructions Recorded Confirmed Levothyroxine [Synthroid] 25 mcg PO DAILY 06/27/15 09/23/16 Multivitamin [Multivitamins] 1 tab PO DAILY 06/27/15 09/23/16 [place]-3 Fatty Acids [Fish Oil] 1 gm PO DAILY 06/27/15 09/23/16 Tamsulosin [Flomax] 0.4 mg PO DAILY 06/27/15 09/23/16 Warfarin [Coumadin] 7.5 mg PO DAILY 06/27/15 09/23/16 Metoprolol Tartrate 25 mg PO BID 09/23/16 09/23/16 Sulfamethoxazole/Trimethoprim 1 each PO BID #20 tablet 05/17/17 [Sulfamethoxazole-Tmp Ds Tablet] diltiaZEM CD [Cardizem Cd] 240 mg PO DAILY #30 capsule 07/09/19 HYDROcod/ACETAM 5/325 [[place] 5/325] 1 - 2 ea PO Q6H PRN #20 tablet 12/17/19 - Allergies Allergies/Adverse Reactions: Allergies Allergy/AdvReac Type Severity Reaction Status Date / Time adhesive tape Allergy Rash Verified 12/17/19 06:16 meperidine HCl * Allergy Itching Verified 12/17/19 06:16 [From Demerol] hydromorphone HCl * AdvReac Unknown Verified 12/17/19 06:16 [From Dilaudid] - Social History Does the pt smoke?: No Smoking Status: Never smoker Does the pt drink ETOH?: No Does the pt have substance abuse?: No - Immunizations Immunizations are current?: Yes - POLST Patient has POLST: No PD ED PE NORMAL - Vitals Vital signs reviewed: Yes - General General: Alert and oriented X 3, No acute distress (at rest, although obvious pain with attempts to flex left knee), Well developed/nourished PD ED PE EXPANDED - Extremities Extremities: Tenderness, Limited ROM, Swelling, Bruising, Left knee Results - Vitals Vitals: Oxygen O2 Source Room air - Rads (name of study) left knee xray Radiology: Prelim report reviewed, See rad report Procedures - Splint (location) Lower extremity left Splint applied by: Tech Type of splint: Prefab velcro wrist, Other (knee immobilizer) Other: Patient tolerated well, No complications, Neurovascular intact, Crutches provided PD MEDICAL DECISION MAKING - ED course Complexity details: reviewed results, re-evaluated patient, considered differential, d/w patient Departure - Departure Disposition: 01 Home, Self Care Clinical Impression: Knee sprain Condition: Good Instructions: ED Crutch Walking, ED Immobilizer Knee, ED Sprain Knee Follow-Up: Glen Boss MD [Provider Admit Priv/Credential] - Within 1 week Prescriptions: HYDROcod/ACETAM 5/325 [[place] 5/325] 1 - 2 ea PO Q6H PRN #20 tablet PRN Reason: Pain Discharge Date/Time: 12/17/19 08:14
[2019-12-17] MEDS ORDERED: HYDROcod/ACETAM 5/325 MG TABLET PO STA ×2 (06:36→07:54)
--- NOTE | 2019-12-17 07:54 | XRAY Report ---
PROCEDURE: Knee 4 View LT INDICATIONS: injury, pain, tenderness TECHNIQUE: 4 views of the left knee(s) were acquired. COMPARISON: None. FINDINGS: Bones: No fractures or dislocations. No suspicious bony lesions. Tricompartmental osteoarthritis. Soft tissues: No joint effusion. Chondrocalcinosis. IMPRESSION: No fracture. No acute osseous lesion. If there is continued clinical concern for pathology, then rep eat plain film radiographs (7-10 days) or advanced imaging (CT, MR, bone scan) should be considered f or further evaluation. Reviewed by: Claudia Segura MD, PhD on 12/17/2019 7:53 AM PDT Approved by: Claudia Segura MD, PhD on 12/17/2019 7:53 AM PDT Station ID: [id number]
[2019-12-17 08:10] VITALS: BP 108/71
== END 2019-12-17 08:14 | disposition home or self-care (01) ==
LOC: ED 06:03
DX: S83.92XA Sprain of unspecified site of left knee, initial encounter (principal); S80.02XA Contusion of left knee, initial encounter; W01.0XXA Fall on same level from slipping, tripping and stumbling without subsequent striking against object, initial encounter; Y93.01 Activity, walking, marching and hiking; Y92.89 Other specified places as the place of occurrence of the external cause; M17.12 Unilateral primary osteoarthritis, left knee; I48.91 Unspecified atrial fibrillation; Z79.01 Long term (current) use of anticoagulants
CPT/HCPCS: 73564; 99283; A9270

== ENCOUNTER 2020-05-06 13:02 | Outpatient (CLI) | payer MEDICARE | END 2020-05-06 13:03 | disposition home or self-care (01) | LOC: LAB.S 13:02 | PROVIDERS: ATTEND Emergency Medicine | DX: I48.91 Unspecified atrial fibrillation (principal) | CPT/HCPCS: 85610 ==

== ENCOUNTER 2020-05-26 13:33 | Outpatient (CLI) | payer MEDICARE | END 2020-05-26 13:34 | disposition home or self-care (01) | LOC: LAB.S 13:33 | PROVIDERS: ATTEND Emergency Medicine | DX: I48.91 Unspecified atrial fibrillation (principal) | CPT/HCPCS: 85610 ==

== ENCOUNTER 2020-06-12 12:01 | Outpatient (CLI) | payer MEDICARE | END 2020-06-12 12:02 | disposition home or self-care (01) | LOC: LAB.S 12:01 | PROVIDERS: ATTEND Emergency Medicine | DX: I48.91 Unspecified atrial fibrillation (principal) | CPT/HCPCS: 85610 ==

== ENCOUNTER 2020-07-14 11:40 | Outpatient (CLI) | payer MEDICARE | END 2020-07-14 11:41 | disposition home or self-care (01) | LOC: LAB.S 11:40 | PROVIDERS: ATTEND Emergency Medicine | DX: I48.91 Unspecified atrial fibrillation (principal) | CPT/HCPCS: 85610 ==

== ENCOUNTER 2020-08-04 11:43 | Outpatient (CLI) | payer MEDICARE | END 2020-08-04 11:44 | disposition home or self-care (01) | LOC: LAB.S 11:43 | PROVIDERS: ATTEND Emergency Medicine | DX: I48.91 Unspecified atrial fibrillation (principal) | CPT/HCPCS: 85610 ==

== ENCOUNTER 2020-08-08 07:51 | Outpatient (CLI) | payer MEDICARE | END 2020-08-08 07:52 | disposition home or self-care (01) | LOC: LAB.S 07:51 | PROVIDERS: ATTEND Emergency Medicine | DX: I48.91 Unspecified atrial fibrillation (principal) | CPT/HCPCS: 85610 ==

== ENCOUNTER 2020-08-22 13:30 | Outpatient (CLI) | payer MEDICARE | END 2020-08-22 13:31 | disposition home or self-care (01) | LOC: LAB.S 13:30 | PROVIDERS: ATTEND Emergency Medicine | DX: I48.91 Unspecified atrial fibrillation (principal) | CPT/HCPCS: 36416; 85610 ==

== ENCOUNTER 2020-09-05 14:22 | Outpatient (CLI) | payer MEDICARE | END 2020-09-05 14:23 | disposition home or self-care (01) | LOC: LAB.S 14:22 | PROVIDERS: ATTEND Emergency Medicine | DX: I48.91 Unspecified atrial fibrillation (principal) | CPT/HCPCS: 36416; 85610 ==

== ENCOUNTER 2020-10-05 11:52 | Outpatient (CLI) | payer MEDICARE | END 2020-10-05 11:53 | disposition home or self-care (01) | LOC: LAB.S 11:52 | PROVIDERS: ATTEND Emergency Medicine | DX: I48.91 Unspecified atrial fibrillation (principal) | CPT/HCPCS: 85610 ==

== ENCOUNTER 2020-10-28 20:16 | Outpatient (CLI) | payer MEDICARE | END 2020-10-28 23:59 | disposition EMS.NT | LOC: EMS 20:16 | DX: M25.561 Pain in right knee (principal) ==

== ENCOUNTER 2020-10-31 21:40 | Outpatient (CLI) | payer MEDICARE | END 2020-10-31 21:41 | disposition critical access hospital (66) | LOC: EMS 21:40 | DX: M25.561 Pain in right knee (principal); R22.41 Localized swelling, mass and lump, right lower limb | CPT/HCPCS: A0425; A0429 ==

== ENCOUNTER 2020-10-31 22:16 | Emergency (ER) | payer MEDICARE ==
[2020-11-01] MEDS ORDERED: LIDOCAINE 1%-EPI 1:100000 20 ML MDV SUBQ STA (00:57)
[2020-11-01] MEDS ORDERED: HYDROcod/ACETAM 5/325 MG TABLET PO STA (04:45)
--- NOTE | 2020-11-01 05:06 | ED Physician Documentation ---
History of Present Illness - Stated complaint Stated Complaint: SWOLLEN KNEE - Chief complaint Chief Complaint: Ext Problem - History obtained from History obtained from: Patient - Additonal information Additional information: 80-year-old man on Coumadin, last night INR 1.6, presents status post fall on Coumadin onto his right knee 1 week ago with subsequent swelling and pain. Patient had xrays at [facility] without acute traumatic injury aside from blood accumulation at the knee. He comes in today because he had progressive worsening pain in the knee as well as in the anterior chao and is concerned that he has an infection. Denies fever Review of Systems Constitutional: denies: Fever, Chills Skin: reports: Other (erythema and swelling to anterior leg. 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 Cardiovascular: Cardiac catheterization HEENT: Other - Present Medications Home Medications: Ambulatory Orders Medication Instructions Recorded Confirmed Levothyroxine [Synthroid] 25 mcg PO DAILY 06/27/15 09/23/16 Multivitamin [Multivitamins] 1 tab PO DAILY 06/27/15 09/23/16 [place]-3 Fatty Acids [Fish Oil] 1 gm PO DAILY 06/27/15 09/23/16 Tamsulosin [Flomax] 0.4 mg PO DAILY 06/27/15 09/23/16 Warfarin [Coumadin] 7.5 mg PO DAILY 06/27/15 09/23/16 Metoprolol Tartrate 25 mg PO BID 09/23/16 09/23/16 Sulfamethoxazole/Trimethoprim 1 each PO BID #20 tablet 05/17/17 [Sulfamethoxazole-Tmp Ds Tablet] diltiaZEM CD [Cardizem Cd] 240 mg PO DAILY #30 capsule 07/09/19 HYDROcod/ACETAM 5/325 [[place] 5/325] 1 - 2 ea PO Q6H PRN #20 tablet 12/17/19 - Allergies Allergies/Adverse Reactions: Allergies Allergy/AdvReac Type Severity Reaction Status Date / Time adhesive tape Allergy Rash Verified 10/31/20 22:37 meperidine HCl * Allergy Itching Verified 10/31/20 22:37 [From Demerol] hydromorphone HCl * AdvReac Unknown Verified 10/31/20 22:37 [From Dilaudid] - Social History Does the pt smoke?: No Smoking Status: Never smoker Does the pt drink ETOH?: No Does the pt have substance abuse?: No - Immunizations Immunizations are current?: Yes - POLST Patient has POLST: No PD ED PE NORMAL - Vitals Vital signs reviewed: Yes - General General: Alert and oriented X 3, No acute distress, Well developed/nourished - HEENT HEENT: Atraumatic, PERRL, EOMI - Neck Neck: Supple, no meningeal sign - Derm Derm: Other (erythema and swelling to anterior leg. discoloration and swelling to R knee) - Extremities Extremities: Other (tender with ROM of R knee) - Neuro Neuro: Alert and oriented X 3, No motor deficit, No sensory deficit Results - Vitals Vitals: Vital Signs - 24 hr 10/31/20 22:32 Temperature 36 C L Heart Rate 60 Respiratory 16 Rate Blood Pressure 152/65 H O2 Saturation 95 Oxygen O2 Source Room air - Labs Labs: Laboratory Tests 11/01/20 05:14 WBC 6.1 RBC 3.52 L Hgb 11.7 L Hct 35.7 L MCV 101.4 H MCH 33.2 H MCHC 32.8 RDW 14.3 Plt Count 137 MPV 9.8 Neut # (Auto) 4.1 Lymph # (Auto) 1.3 L [place] # (Auto) 0.6 Eos # (Auto) 0.1 Baso # (Auto) 0.0 Absolute Nucleated RBC 0.00 Nucleated RBC % 0.0 PD MEDICAL DECISION MAKING - ED course ED course: Attempted arthrocentesis twice with only minimal clotted blood obtained. Suspect hemarthrosis with clot formation. Will obtain CBC and x-rays and have incoming doc reevaluate.
[2020-11-01 05:19] LABS: BASOPHILS % (AUTO) 0.2 %; EOSINOPHILS # (AUTO) 0.1 10^3/uL (0.0-0.7); EOSINOPHILS % (AUTO) 1.6 %; HCT - HEMATOCRIT 35.7 % (42.0-52.0); HGB - HEMOGLOBIN 11.7 g/dL (14.0-18.0); LYMPHOCYTES # (AUTO) 1.3 10^3/uL (1.5-3.5); LYMPHOCYTES % (AUTO) 21.9 %; MEAN CORPUSCULAR HEMOGLOBIN 33.2 pg (27.0-31.0); MEAN CORPUSCULAR HGB CONC 32.8 g/dL (32.0-36.0); MEAN CORPUSCULAR VOLUME 101.4 fL (80.0-94.0); MEAN PLATELET VOLUME 9.8 fL (7.4-11.4); MONOCYTES # (AUTO) 0.6 10^3/uL (0.0-1.0); MONOCYTES % (AUTO) 9.6 %; NEUTROPHILS # (AUTO) 4.1 10^3/uL (1.5-6.6); NEUTROPHILS % (AUTO) 66.4 %; PLT - PLATELET COUNT 137 10^3/uL (130-450); RED BLOOD COUNT 3.52 10^6/uL (4.70-6.10); RED CELL DISTRIBUTION WIDTH 14.3 % (12.0-15.0); WHITE BLOOD COUNT 6.1 x10^3/uL (4.8-10.8)
[2020-11-01] MEDS ORDERED: KETOROLAC 30 MG/ML VIAL IM STA (07:39)
[2020-11-01] MEDS ORDERED: MORPHINE 10 MG/ML VIAL IM STA (07:40)
--- NOTE | 2020-11-01 08:15 | XRAY Report ---
PROCEDURE: Knee 2 View RT INDICATIONS: knee pain, swelling TECHNIQUE: 2 views of the right knee(s) were acquired. COMPARISON: None. FINDINGS: Bones: No fractures or dislocations and there has been a prior right total knee arthroplasty. No blanco spicious bony lesions. Soft tissues: No joint effusion. Prominent prepatellar soft tissue thickening. No suspicious soft t issue calcifications. IMPRESSION: Prior knee arthroplasty, prominent prepatellar soft tissue thickening. Please correlate for trauma. If trauma has not occurred infection should be considered as a likely etiology. However, no joint effusion is seen and no loosening of the arthroplasty device is found. Reviewed by: Jose Hahn MD on 11/01/2020 8:14 AM PDT Approved by: Jose Hahn MD on 11/01/2020 8:14 AM PDT Station ID: [id number]
--- NOTE | 2020-11-01 08:17 | XRAY Report ---
PROCEDURE: Tib/Fib RT INDICATIONS: knee pain, swelling TECHNIQUE: 2 views of the tibia and fibula were acquired. COMPARISON: Knee plain film study same day. FINDINGS: Bones: No fractures or dislocations. No suspicious bony lesions. Soft tissues: No suspicious soft tissue calcifications or masses. Soft tissue thickening previously described in the prepatellar region. IMPRESSION: Prominent prepatellar soft tissue thickening with no visualized joint effusion and no evidence of tra felisha below the proximal tibial border. Prior knee arthroplasty shows no evidence of loosening. Please correlate for infection versus trauma. Reviewed by: Jose Hahn MD on 11/01/2020 8:15 AM PDT Approved by: Jose Hahn MD on 11/01/2020 8:15 AM PDT Station ID: [id number]
--- NOTE | 2020-11-01 08:53 | ED Physician Documentation ---
ED Addendum - Addendum Addendum: 11/01/20 08:52The patient was still having pain in the knee. He was given Toradol and 5 mg morphine IM. This did provide some improvement. I attempted another arthrocentesis of the knee but still only came out with a small amount of clotted blood. This is not enough for cell analysis but we are able to just set up a culture on it. You should answer the question of septic bursa or not. Meanwhile we will try wrapping the leg and knee. We will start empiric antibiotics at least pending the culture.
[2020-11-01 11:24] VITALS: BP 111/70
--- NOTE | 2020-11-18 02:34 | ED Physician Documentation ---
ED Addendum - Addendum Addendum: 11/18/20 02:34 Final impression 1 knee effusion 2 hemarthrosis of the knee 3 knee pain
== END 2020-11-01 11:57 | disposition home or self-care (01) ==
LOC: EDUNIT# → EDBD → ED 22:16
DX: M25.461 Effusion, right knee (principal); I48.91 Unspecified atrial fibrillation; Z79.01 Long term (current) use of anticoagulants
CPT/HCPCS: 20610; 36415; 73560; 73590; 85025; 85610; 87070; 87205; 96372; 99283; 99284; A9270

== ENCOUNTER 2020-12-08 11:46 | Outpatient (CLI) | payer MEDICARE | END 2020-12-08 11:47 | disposition home or self-care (01) | LOC: LAB.S 11:46 | PROVIDERS: ATTEND Emergency Medicine | DX: I48.91 Unspecified atrial fibrillation (principal) | CPT/HCPCS: 36416; 85610 ==

== ENCOUNTER 2020-12-26 13:43 | Outpatient (CLI) | payer MEDICARE | END 2020-12-26 13:44 | disposition home or self-care (01) | LOC: LAB.S 13:43 | PROVIDERS: ATTEND Emergency Medicine | DX: I48.91 Unspecified atrial fibrillation (principal) | CPT/HCPCS: 36416; 85610 ==

== ENCOUNTER 2021-01-01 09:22 | Outpatient (CLI) | payer MEDICARE | END 2021-01-01 09:23 | disposition critical access hospital (66) | LOC: EMS 09:22 | DX: M54.5 Low back pain (principal); R42 Dizziness and giddiness; W01.0XXA Fall on same level from slipping, tripping and stumbling without subsequent striking against object, initial encounter; Y92.003 Bedroom of unspecified non-institutional (private) residence as the place of occurrence of the external cause; Z79.01 Long term (current) use of anticoagulants | CPT/HCPCS: A0425; A0429 ==

== ENCOUNTER 2021-01-01 10:00 | Emergency (ER) | payer MEDICARE ==
--- NOTE | 2021-01-01 10:17 | ED Physician Documentation ---
History of Present Illness - Stated complaint Stated Complaint: GLF - History obtained from History obtained from: Patient, EMS - Additonal information Additional information: Patient is brought to the emergency department by EMS after chief complaint of ground-level fall. The patient states that he has a history of some vertigo, but states that he was not really feeling a sense of vertigo when he fell. He had tripped over the edge of a rug and twisted as he fell, causing some pain in his right superior lumbar area. He states that he has frequent falls and that whenever he falls, he gets somewhat disoriented as he goes down, so he has a hard time grabbing onto anything. This is what caused him to twist at this time. He denies hitting his head at all. He was awake the entire time and was able to get up right away and continue about his business in the house. However, he started to notice that his back was becoming more sore, and that he had a burning sensation shooting down to his right buttock whenever he would bend over to pick things up. As such, he decided to come to the emergency department. Patient is on Coumadin and his last INR was 1.9 3 days ago. No other complaints at this time. No chest or abdominal pain. No rib pain. No spinal pain. No headache or head injury. No extremity pain. No difficulty with ambulation. Review of Systems Ten Systems: 10 systems reviewed and negative Constitutional: reports: Reviewed and negative Eyes: reports: Reviewed and negative Ears: reports: Reviewed and negative Nose: reports: Reviewed and negative Throat: reports: Reviewed and negative Cardiac: reports: Reviewed and negative Respiratory: reports: Reviewed and negative GI: reports: Reviewed and negative : reports: Reviewed and negative Skin: reports: Reviewed and negative Musculoskeletal: reports: Back pain Neurologic: reports: Reviewed and negative Psychiatric: reports: Reviewed and negative Endocrine: reports: Reviewed and negative Immunocompromised: reports: Reviewed and negative PD PAST MEDICAL HISTORY - Past Medical History Cardiovascular: Atrial fibrillation Respiratory: Sleep apnea, CPAP use Endocrine/Autoimmune: None GI: GERD : Benign prostate hypertrophy HEENT: None Musculoskeletal: None - Past Surgical History Past Surgical History: Yes General: Appendectomy Ortho: Knee replacement, 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 Cardiovascular: Cardiac catheterization HEENT: Other - Present Medications Home Medications: Ambulatory Orders Medication Instructions Recorded Confirmed Levothyroxine [Synthroid] 25 mcg PO DAILY 06/27/15 09/23/16 Multivitamin [Multivitamins] 1 tab PO DAILY 06/27/15 09/23/16 [place]-3 Fatty Acids [Fish Oil] 1 gm PO DAILY 06/27/15 09/23/16 Tamsulosin [Flomax] 0.4 mg PO DAILY 06/27/15 01/01/21 Warfarin [Coumadin] 7.5 mg PO DAILY 06/27/15 01/01/21 Metoprolol Tartrate 25 mg PO BID 09/23/16 09/23/16 Sulfamethoxazole/Trimethoprim 1 each PO BID #20 tablet 05/17/17 [Sulfamethoxazole-Tmp Ds Tablet] diltiaZEM CD [Cardizem Cd] 240 mg PO DAILY #30 capsule 07/09/19 HYDROcod/ACETAM 5/325 [[place] 5/325] 1 - 2 ea PO Q6H PRN #20 tablet 12/17/19 HYDROcod/ACETAM 5/325 [[place] 5/325] 1 ea PO Q6H PRN #15 tablet 11/01/20 cephALEXin [Keflex] 500 mg PO TID #20 cap 11/01/20 Cyclobenzaprine [Flexeril] 10 mg PO TID PRN #20 tablet 01/01/21 Finasteride [Proscar] 1 tab PO DAILY 01/01/21 01/01/21 - Allergies Allergies/Adverse Reactions: Allergies Allergy/AdvReac Type Severity Reaction Status Date / Time adhesive tape Allergy Rash Verified 01/01/21 10:22 meperidine HCl * Allergy Itching Verified 01/01/21 10:22 [From Demerol] hydromorphone HCl * AdvReac Unknown Verified 01/01/21 10:22 [From Dilaudid] - Social History Does the pt smoke?: No Smoking Status: Never smoker Does the pt drink ETOH?: No Does the pt have substance abuse?: No - Immunizations Immunizations are current?: Yes - POLST Patient has POLST: No PD ED PE NORMAL - Vitals Vital signs reviewed: Yes - General General: Alert and oriented X 3, No acute distress, Well developed/nourished - HEENT HEENT: Atraumatic, PERRL, EOMI, Moist mucous membranes - Neck Neck: Supple, no meningeal sign - Cardiac Cardiac: RRR, No murmur, Strong equal pulses - Respiratory Respiratory: No respiratory distress, Clear bilaterally - Abdomen Abdomen: Soft, Non tender, Non distended - Back Back: No spinal TTP, Other (Tenderness immediately adjacent to L1-2 on the R. No deformity. No other tenderness.) - Derm Derm: Normal color, Warm and dry, No rash - Extremities Extremities: No deformity, No tenderness to palpate, No edema - Neuro Neuro: Alert and oriented X 3, sonogram technician 2-12 intact, No motor deficit, No sensory deficit, Normal speech - Psych Psych: Normal mood, Normal affect Results - Vitals Vitals: Vital Signs - 24 hr 01/01/21 01/01/21 10:03 11:47 Temperature 36.7 C Heart Rate 48 L 47 L Respiratory 18 18 Rate Blood Pressure 143/77 H 146/75 H O2 Saturation 94 95 Oxygen O2 Source Room air - Labs Labs: Laboratory Tests 01/01/21 10:16 PT 32.4 H INR 2.9 H - Rads (name of study) lumbar spine XR Radiology: Final report received, EMP read indepedently, See rad report (neg) PD MEDICAL DECISION MAKING - ED course Complexity details: reviewed results, re-evaluated patient, considered differential, d/w patient ED course: Pt had no head injury. Was worked up with L-spine XR series, which was negative. We have discussed home management of sx, as well as the usual indications for return. Departure - Departure Disposition: 01 Home, Self Care Clinical Impression: Low back strain Qualifiers: Encounter type: initial encounter Qualified Code(s): S39.012A - Strain of muscle, fascia and tendon of lower back, initial encounter Condition: Stable Instructions: ED Sprain Strain Lumbar Prescriptions: Cyclobenzaprine [Flexeril] 10 mg PO TID PRN #20 tablet PRN Reason: Spasms Comments: Your low back x-ray looks good. There is no evidence of bony displacement or injury. Most likely, you strained the muscles and tenderness connections of your back during the fall. On examination, you do not have any bruising or swelling over the area, which is good, given your anticoagulated status. You have been prescribed a muscle relaxer which will not interfere with the Coumadin you are on. If you need to take something else for pain, it is best that you take Tylenol, as any anti-inflammatory may amplify the effects of your blood thinner. You may also use ice and heat to help with the discomfort in your back, and when she are ready, and do some gentle range of motion exercises and stretches. As far as your INR, this was 2.9 today, which is a good therapeutic level. Please continue to follow-up for periodic INR is as usual, and continue your Coumadin/warfarin as per your usual dosage regimen. You may follow-up with your primary care physician as needed. Discharge Date/Time: 01/01/21 12:10
[2021-01-01 10:32] LABS: INR 2.9 (0.8-1.2); PT - PROTHROMBIN TIME 32.4 secs (9.9-12.6)
--- NOTE | 2021-01-01 11:02 | XRAY Report ---
PROCEDURE: Lumbar Spine 2 View INDICATIONS: fall/pain TECHNIQUE: 2 views of the lumbar spine were acquired. COMPARISON: CT abdomen and pelvis 09/30/2015. FINDINGS: Bones: 5 [id number] vertebrae are present. There is normal bony alignment. Small multilevel v ertebral body osteophytes. No vertebral body compression fractures. No suspicious bony lesions. Und ulation of the left 12th rib appears similar to 2016. Soft tissues: Overlying bowel gas pattern is normal. No suspicious soft tissue calcifications. IMPRESSION: No compression fracture. Reviewed by: Abdelrahman Quinones MD on 01/01/2021 11:01 AM PDT Approved by: Abdelrahman Quinones MD on 01/01/2021 11:01 AM PDT Station ID: [id number]
[2021-01-01 11:48] VITALS: BP 146/75
== END 2021-01-01 12:10 | disposition home or self-care (01) ==
LOC: EDUNIT# → EDBD → ED 10:00
DX: S39.012A Strain of muscle, fascia and tendon of lower back, initial encounter (principal); W01.0XXA Fall on same level from slipping, tripping and stumbling without subsequent striking against object, initial encounter; Z79.01 Long term (current) use of anticoagulants
CPT/HCPCS: 36415; 85610; 99283; 99284

== ENCOUNTER 2021-01-31 17:03 | Outpatient (CLI) | payer MEDICARE | END 2021-01-31 17:04 | disposition home or self-care (01) | LOC: LAB.S 17:03 | PROVIDERS: ATTEND Emergency Medicine | DX: I48.91 Unspecified atrial fibrillation (principal) | CPT/HCPCS: 36416; 85610 ==

== ENCOUNTER 2021-02-10 11:53 | Outpatient (CLI) | payer MEDICARE | END 2021-02-10 11:54 | disposition home or self-care (01) | LOC: LAB.S 11:53 | PROVIDERS: ATTEND Emergency Medicine | DX: I48.91 Unspecified atrial fibrillation (principal) | CPT/HCPCS: 36416; 85610 ==

== ENCOUNTER 2021-03-11 21:40 | Emergency (ER) | payer MEDICARE ==
[2021-03-11] MEDS ORDERED: SODIUM CHLORIDE 0.9% 1,000 ML IV STA (22:12)
--- NOTE | 2021-03-11 22:15 | ED Physician Documentation ---
History of Present Illness - Stated complaint Stated Complaint: DIZZY - Chief complaint Chief Complaint: Neuro - History obtained from History obtained from: Patient - History of Present Illness Timing: Today - Additonal information Additional information: 80-year-old male with a history of atrial fibrillation on Coumadin who has had a pacemaker placed a week ago and has had bladder tumor resection and follow-up cystoscopy within the last month. The patient indicates that he has been feeling improved in the morning more sure on his feet after getting his p acemaker placed and this evening he went to stand up from the couch and felt very lightheaded and dizzy and felt that he may lose his footing fall or collapse. He has come to the emergency department for evaluation. He does indicate that he had a lot of sugar today and is wondering if that had anything to do with this. He does acknowledge excessive urination. Review of Systems Constitutional: denies: Fever Eyes: denies: Decreased vision Ears: denies: Ear pain Nose: denies: Congestion Throat: denies: Sore throat Cardiac: denies: Chest pain / pressure, Palpitations Respiratory: denies: Dyspnea, Cough, Wheezing GI: denies: Abdominal Pain, Nausea, Vomiting, Constipation, Diarrhea : reports: Frequency. denies: Dysuria Skin: denies: Rash Musculoskeletal: denies: Neck pain, Back pain, Extremity pain Neurologic: reports: Near syncope. 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 Cardiovascular: Cardiac catheterization HEENT: Other - Present Medications Home Medications: Ambulatory Orders Medication Instructions Recorded Confirmed Levothyroxine [Synthroid] 25 mcg PO DAILY 06/27/15 09/23/16 Multivitamin [Multivitamins] 1 tab PO DAILY 06/27/15 09/23/16 [place]-3 Fatty Acids [Fish Oil] 1 gm PO DAILY 06/27/15 09/23/16 Tamsulosin [Flomax] 0.4 mg PO DAILY 06/27/15 01/01/21 Warfarin [Coumadin] 7.5 mg PO DAILY 06/27/15 01/01/21 Metoprolol Tartrate 25 mg PO BID 09/23/16 09/23/16 Sulfamethoxazole/Trimethoprim 1 each PO BID #20 tablet 05/17/17 [Sulfamethoxazole-Tmp Ds Tablet] diltiaZEM CD [Cardizem Cd] 240 mg PO DAILY #30 capsule 07/09/19 HYDROcod/ACETAM 5/325 [[place] 5/325] 1 - 2 ea PO Q6H PRN #20 tablet 12/17/19 HYDROcod/ACETAM 5/325 [[place] 5/325] 1 ea PO Q6H PRN #15 tablet 11/01/20 cephALEXin [Keflex] 500 mg PO TID #20 cap 11/01/20 Cyclobenzaprine [Flexeril] 10 mg PO TID PRN #20 tablet 01/01/21 Finasteride [Proscar] 1 tab PO DAILY 01/01/21 01/01/21 - Allergies Allergies/Adverse Reactions: Allergies Allergy/AdvReac Type Severity Reaction Status Date / Time adhesive tape Allergy Rash Verified 03/11/21 21:56 meperidine HCl * Allergy Itching Verified 03/11/21 21:56 [From Demerol] hydromorphone HCl * AdvReac Unknown Verified 03/11/21 21:56 [From Dilaudid] - Social History Does the pt smoke?: No Smoking Status: Never smoker Does the pt drink ETOH?: No Does the pt have substance abuse?: No - Immunizations Immunizations are current?: Yes - POLST Patient has POLST: No PD ED PE NORMAL - Vitals Vital signs reviewed: Yes (normal ) - General General: Alert and oriented X 3, No acute distress, Well developed/nourished - HEENT HEENT: Atraumatic, PERRL, EOMI - Neck Neck: Supple, no meningeal sign, No bony TTP - Cardiac Cardiac: RRR, No murmur - Respiratory Respiratory: No respiratory distress, Clear bilaterally, Other (fresh glue to the pacer site. ) - Abdomen Abdomen: Soft, Non tender - Back Back: No CVA TTP, No spinal TTP - Derm Derm: Normal color, Warm and dry, No rash - Extremities Extremities: No deformity, Other (pitting edema bilat 1+) - Neuro Neuro: Alert and oriented X 3, plater production 2-12 intact, No motor deficit, No sensory deficit, Normal speech Eye Opening: Spontaneous Motor: Obeys Commands Verbal: Oriented GCS Score: 15 - Psych Psych: Normal mood, Normal affect Results - Vitals Vitals: Vital Signs - 24 hr 03/11/21 03/11/21 03/11/21 21:52 21:56 22:50 Temperature 37.3 C 37.3 C Heart Rate 77 77 76 Respiratory 19 19 16 Rate Blood Pressure 130/74 130/74 111/68 O2 Saturation 96 96 95 03/11/21 23:00 Temperature Heart Rate 79 Respiratory 17 Rate Blood Pressure 122/65 O2 Saturation 95 Oxygen O2 Source Room air - EKG (time done) 2151 Rate: Rate (enter#) (73) Rhythm: Paced [place]: RAD Intervals: Prolonged QT Compare to prior EKG: Changed from prior EKG (SPT 11-10-2019 the rhythm has changed from afib to paced) Computer interpretation: Agree with computer - Labs Labs: Laboratory Tests 03/11/21 03/11/21 03/11/21 22:17 22:17 22:17 WBC 8.8 RBC 4.45 L Hgb 14.3 Hct 43.2 MCV 97.1 H MCH 32.1 H MCHC 33.1 RDW 15.0 Plt Count 122 L MPV 9.9 Neut # (Auto) 7.3 H Lymph # (Auto) 0.7 L [place] # (Auto) 0.8 Eos # (Auto) 0.0 Baso # (Auto) 0.0 Absolute Nucleated RBC 0.00 Nucleated RBC % 0.0 PT 13.7 H INR 1.2 Sodium 136 Potassium 4.1 Chloride 102 Carbon Dioxide 25 Anion Gap 9.0 BUN 24 H Creatinine 1.3 H Estimated GFR (MDRD) 53 L Glucose 130 H Calcium 8.4 L Magnesium 1.9 Total Bilirubin 0.9 AST 21 ALT 19 Alkaline Phosphatase 73 Troponin I High Sens B-Natriuretic Peptide Total Protein 6.6 L Albumin 3.9 Globulin 2.7 Albumin/Globulin Ratio 1.4 Lipase 20 L Urine Color Urine Clarity Urine pH Ur Specific [place] Urine Protein Urine Glucose (UA) Urine Ketones Urine Occult Blood Urine Nitrite Urine Bilirubin Urine Urobilinogen Ur Leukocyte Esterase Urine RBC Urine WBC Ur Squamous Epith Cells Urine Bacteria Ur Microscopic Review Urine Culture Comments 03/11/21 03/11/21 03/11/21 22:17 22:46 23:10 WBC RBC Hgb Hct MCV MCH MCHC RDW Plt Count MPV Neut # (Auto) Lymph # (Auto) [place] # (Auto) Eos # (Auto) Baso # (Auto) Absolute Nucleated RBC Nucleated RBC % PT INR Sodium Potassium Chloride Carbon Dioxide Anion Gap BUN Creatinine Estimated GFR (MDRD) Glucose Calcium Magnesium Total Bilirubin AST ALT Alkaline Phosphatase Troponin I High Sens 10.1 B-Natriuretic Peptide 85 Total Protein Albumin Globulin Albumin/Globulin Ratio Lipase Urine Color YELLOW Urine Clarity CLEAR Urine pH 6.0 Ur Specific [place] 1.010 Urine Protein NEGATIVE Urine Glucose (UA) NEGATIVE Urine Ketones NEGATIVE Urine Occult Blood MODERATE H Urine Nitrite NEGATIVE Urine Bilirubin NEGATIVE Urine Urobilinogen 0.2 (NORMAL) Ur Leukocyte Esterase NEGATIVE Urine RBC 0-5 Urine WBC 0-3 Ur Squamous Epith Cells NONE SEEN Urine Bacteria Few Ur Microscopic Review INDICATED Urine Culture Comments NOT INDICATED Procedures - IVC sono (time) 2209 Bedside IVC sono: IVC measures (cm) (0.9), IVC collapsed c insp (cm) (complete), Dehydration (est 1-2 liter deficit) PD MEDICAL DECISION MAKING - ED course Complexity details: reviewed old records, reviewed results, re-evaluated patient, considered differential, d/w patient ED course: 80-year-old male with a history of atrial fibrillation s/p pacer placement presents to the emergency department with dizziness and lightheadedness accompanied by excessive urination. On evaluation in the emergency department he is found to be dehydrated on interrogation of the inferior vena cava and he is administered intravenous saline (despite the swollen ankles). His Chest x-ray appears dry to me but is read as central venous congestion by the radiologist(BNP is lower than we have ever recorded here at 85). He has recently been instrumented and complains of urinary frequency, and we find no evidence of infection on analysis of the urine. At the conclusion of treatment the patient feels improved and has follow-up with the surgeon who put the pacer in and his informaticist within the next 2 weeks. Departure - Departure Disposition: 01 Home, Self Care Clinical Impression: Dehydration determined by examination Condition: Stable Instructions: ED Dehydration Follow-Up: KATE RAMIREZ MD [Physician No Access] - Comments: Anderson, today it appears your feeling of lightheadedness and dizziness was related to a significant dehydration. I suspect this was related to excessive carbohydrate intake and diuresis. We found no other specific abnormalities.
[2021-03-11 22:23] LABS: BASOPHILS % (AUTO) 0.1 %; EOSINOPHILS % (AUTO) 0.2 %; HCT - HEMATOCRIT 43.2 % (42.0-52.0); HGB - HEMOGLOBIN 14.3 g/dL (14.0-18.0); LYMPHOCYTES # (AUTO) 0.7 10^3/uL (1.5-3.5); MEAN CORPUSCULAR HEMOGLOBIN 32.1 pg (27.0-31.0); MEAN CORPUSCULAR HGB CONC 33.1 g/dL (32.0-36.0); MEAN CORPUSCULAR VOLUME 97.1 fL (80.0-94.0); MEAN PLATELET VOLUME 9.9 fL (7.4-11.4); MONOCYTES # (AUTO) 0.8 10^3/uL (0.0-1.0); MONOCYTES % (AUTO) 8.9 %; NEUTROPHILS # (AUTO) 7.3 10^3/uL (1.5-6.6); NEUTROPHILS % (AUTO) 82.5 %; PLT - PLATELET COUNT 122 10^3/uL (130-450); RED BLOOD COUNT 4.45 10^6/uL (4.70-6.10); WHITE BLOOD COUNT 8.8 x10^3/uL (4.8-10.8)
[2021-03-11 22:29] LABS: INR 1.2 (0.8-1.2); PT - PROTHROMBIN TIME 13.7 secs (9.9-12.6)
[2021-03-11 22:37] LABS: ALBUMIN 3.9 g/dL (3.2-5.5); ALBUMIN/GLOBULIN RATIO 1.4 (1.0-2.2); BILIRUBIN,TOTAL 0.9 mg/dL (0.2-1.0); CREATININE 1.3 mg/dL (0.6-1.2); MAGNESIUM 1.9 mg/dL (1.7-2.8); POTASSIUM 4.1 mmol/L (3.5-5.0); TOTAL PROTEIN 6.6 g/dL (6.7-8.2)
[2021-03-11 22:46] LABS: CALCIUM 8.4 mg/dL (8.5-10.3)
--- NOTE | 2021-03-11 23:02 | XRAY Report ---
PROCEDURE: Chest 1 View X-Ray INDICATIONS: chest pain TECHNIQUE: One view of the chest was acquired. COMPARISON: 07/09/2019 FINDINGS: Surgical changes and devices: Dual-lead left-sided pacemaker with leads in expected position.. Lungs and pleura: No pleural effusions or pneumothorax. There is mild central vascular and interstit ial congestion, increased over prior. There is scarring at the left lateral lung base. Mediastinum: Mediastinal contours appear normal. Heart size is enlarged compared to prior. Bones and chest wall: No suspicious bony lesions. Overlying soft tissues appear unremarkable. IMPRESSION: 1. New left-sided dual-lead pacemaker. No pneumothorax. 2. Mild cardiomegaly with central venous and interstitial congestion, likely CHF. Reviewed by: Minnie Macdonald MD on 03/11/2021 11:01 PM PST Approved by: Minnie Macdonald MD on 03/11/2021 11:01 PM PST Station ID: [id number]
[2021-03-11 23:21] VITALS: BP 122/65
[2021-03-11 23:33] LABS: BILIRUBIN,URINE NEGATIVE (NEGATIVE); GLUCOSE, URINE (UA) NEGATIVE (NEGATIVE); KETONES,URINE (UA) NEGATIVE (NEGATIVE); LEUKOCYTE ESTERASE, URINE NEGATIVE (NEGATIVE); NITRITE,URINE NEGATIVE (NEGATIVE); OCCULT BLOOD,URINE MODERATE (NEGATIVE); PROTEIN,URINE NEGATIVE (NEGATIVE); UROBILINOGEN,URINE 0.2 (NORMAL) E.U./dL (NORMAL)
[2021-03-11 23:40] LABS: BACTERIA,URINE Few /HPF (None Seen); CLARITY,URINE CLEAR (CLEAR); RBC,URINE 0-5 /HPF (0-5); SQUAMOUS EPITHELIAL CELL,UR NONE SEEN (<= Few); WBC,URINE 0-3 /HPF (0-3)
[2021-03-11] MEDS ORDERED: WARFARIN 5 MG TABLET PO STA (23:43)
[2021-03-11] MEDS ORDERED: TAMSULOSIN 0.4 MG CAPSULE PO STA (23:43)
== END 2021-03-12 00:48 | disposition home or self-care (01) ==
LOC: ED 21:40
DX: E86.0 Dehydration (principal)
CPT/HCPCS: 36415; 71045; 80053; 81001; 83690; 83735; 83880; 84484; 85025; 85610; 93005; 96360; 99284; A9270; 81003; 87086

== ENCOUNTER 2021-03-16 14:34 | Outpatient (CLI) | payer MEDICARE | END 2021-03-16 14:35 | disposition home or self-care (01) | LOC: LAB.S 14:34 | PROVIDERS: ATTEND Emergency Medicine | DX: I48.91 Unspecified atrial fibrillation (principal) | CPT/HCPCS: 36416; 85610 ==

== ENCOUNTER 2021-03-22 15:01 | Outpatient (CLI) | payer MEDICARE | END 2021-03-22 15:02 | disposition home or self-care (01) | LOC: LAB.S 15:01 | PROVIDERS: ATTEND Emergency Medicine | DX: I48.91 Unspecified atrial fibrillation (principal) | CPT/HCPCS: 36416; 85610 ==

== ENCOUNTER 2021-05-21 15:42 | Outpatient (CLI) | payer MEDICARE | END 2021-05-21 15:43 | disposition home or self-care (01) | LOC: LAB.S 15:42 | PROVIDERS: ATTEND Emergency Medicine | DX: I48.91 Unspecified atrial fibrillation (principal) | CPT/HCPCS: 36416; 85610 ==

== ENCOUNTER 2021-05-29 08:37 | Outpatient (CLI) | payer MEDICARE | END 2021-05-29 08:38 | disposition home or self-care (01) | LOC: LAB.S 08:37 | PROVIDERS: ATTEND Emergency Medicine | DX: I48.91 Unspecified atrial fibrillation (principal) | CPT/HCPCS: 36416; 85610 ==

== ENCOUNTER 2021-10-01 12:53 | Outpatient (CLI) | payer MEDICARE | END 2021-10-01 12:54 | disposition home or self-care (01) | LOC: LAB.S 12:53 | PROVIDERS: ATTEND Emergency Medicine | DX: I48.91 Unspecified atrial fibrillation (principal) | CPT/HCPCS: 36416; 85610 ==

== ENCOUNTER 2021-10-17 13:32 | Outpatient (CLI) | payer MEDICARE | END 2021-10-17 13:33 | disposition home or self-care (01) | LOC: LAB.S 13:32 | PROVIDERS: ATTEND Emergency Medicine | DX: I48.91 Unspecified atrial fibrillation (principal) | CPT/HCPCS: 36416; 85610 ==

== ENCOUNTER 2021-11-08 12:35 | Outpatient (CLI) | payer MEDICARE | END 2021-11-08 12:36 | disposition home or self-care (01) | LOC: LAB.S 12:35 | PROVIDERS: ATTEND Emergency Medicine | DX: I48.91 Unspecified atrial fibrillation (principal) | CPT/HCPCS: 36416; 85610 ==

== ENCOUNTER 2022-02-11 11:20 | Outpatient (CLI) | payer MEDICARE | END 2022-02-11 11:21 | disposition home or self-care (01) | LOC: LAB.S 11:20 | PROVIDERS: ATTEND Emergency Medicine | DX: I48.91 Unspecified atrial fibrillation (principal) | CPT/HCPCS: 36416; 85610 ==

== ENCOUNTER 2022-03-20 14:41 | Outpatient (CLI) | payer MEDICARE | END 2022-03-20 14:42 | disposition home or self-care (01) | LOC: LAB.S 14:41 | PROVIDERS: ATTEND Emergency Medicine | DX: I48.91 Unspecified atrial fibrillation (principal) | CPT/HCPCS: 36416; 85610 ==

== ENCOUNTER 2022-04-25 09:25 | Outpatient (CLI) | payer MEDICARE | END 2022-04-25 09:26 | disposition home or self-care (01) | LOC: LAB.S 09:25 | PROVIDERS: ATTEND Emergency Medicine | DX: I48.91 Unspecified atrial fibrillation (principal) | CPT/HCPCS: 36416; 85610 ==

== ENCOUNTER 2022-06-01 13:28 | Outpatient (CLI) | payer MEDICARE | END 2022-06-01 13:29 | disposition critical access hospital (66) | LOC: EMS 13:28 | DX: M54.2 Cervicalgia (principal); R30.9 Painful micturition, unspecified; R39.89 Other symptoms and signs involving the genitourinary system | CPT/HCPCS: A0425; A0429 ==

== ENCOUNTER 2022-06-01 14:45 | Emergency (ER) | payer MEDICARE ==
[2022-06-01] MEDS ORDERED: HYDROcod/ACETAM 5/325 MG TABLET PO STA (14:54)
--- NOTE | 2022-06-01 14:56 | ED Physician Documentation ---
PD HPI NECK PAIN - Stated complaint Stated Complaint: NECK PX - History obtained from History obtained from: Patient, EMS - Additional information Additional information: 81-year-old gentleman with history of atrial fibrillation, pacemaker in place, on warfarin presents with 4 days of severe atraumatic neck pain. It is at the top of his neck and hurts to turn to either side. He cannot sleep because of it. Hurts to swallow. He denies weakness, numbness, tingling of the extremities. No history of neck problems except a brief neck issue when he was 15 years of age. He had a TeleDoc visit with an classification analyst at [facility] who recommended he come directly here for an MRI, not sure if the classification analyst was aware that the patient has a pacemaker. 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 Cardiovascular: Cardiac catheterization HEENT: Other - Present Medications Home Medications: Ambulatory Orders Medication Instructions Recorded Confirmed Levothyroxine [Synthroid] 25 mcg PO DAILY 06/27/15 09/23/16 Multivitamin [Multivitamins] 1 tab PO DAILY 06/27/15 09/23/16 [place]-3 Fatty Acids [Fish Oil] 1 gm PO DAILY 06/27/15 09/23/16 Tamsulosin [Flomax] 0.4 mg PO DAILY 06/27/15 01/01/21 Warfarin [Coumadin] 7.5 mg PO DAILY 06/27/15 01/01/21 Metoprolol Tartrate 25 mg PO BID 09/23/16 09/23/16 Sulfamethoxazole/Trimethoprim 1 each PO BID #20 tablet 05/17/17 [Sulfamethoxazole-Tmp Ds Tablet] diltiaZEM CD [Cardizem Cd] 240 mg PO DAILY #30 capsule 07/09/19 HYDROcod/ACETAM 5/325 [[place] 5/325] 1 - 2 ea PO Q6H PRN #20 tablet 12/17/19 HYDROcod/ACETAM 5/325 [[place] 5/325] 1 ea PO Q6H PRN #15 tablet 11/01/20 cephALEXin [Keflex] 500 mg PO TID #20 cap 11/01/20 Cyclobenzaprine [Flexeril] 10 mg PO TID PRN #20 tablet 01/01/21 Finasteride [Proscar] 1 tab PO DAILY 01/01/21 01/01/21 HYDROcod/ACETAM 5/325 [[place] 5/325] 1 - 2 tab PO Q6H PRN #15 tablet 06/01/22 - Allergies Allergies/Adverse Reactions: Allergies Allergy/AdvReac Type Severity Reaction Status Date / Time adhesive tape Allergy Rash Verified 03/11/21 21:56 meperidine HCl * Allergy Itching Verified 03/11/21 21:56 [From Demerol] hydromorphone HCl * AdvReac Unknown Verified 03/11/21 21:56 [From Dilaudid] - Social History Does the pt smoke?: No Smoking Status: Never smoker Does the pt drink ETOH?: No Does the pt have substance abuse?: No - Immunizations Immunizations are current?: Yes - POLST Patient has POLST: No PD ED PE NORMAL - Vitals Vital signs reviewed: Yes - General General: Alert and oriented X 3, No acute distress - HEENT HEENT: PERRL, EOMI - Neck Neck: Other (He is tender to the upper C-spine and has difficulty with rotation of the neck.) - Cardiac Cardiac: RRR, No murmur - Respiratory Respiratory: No respiratory distress, Clear bilaterally - Abdomen Abdomen: Non tender - Back Back: No CVA TTP, No spinal TTP - Derm Derm: Normal color, Warm and dry - Extremities Extremities: Other (Normal equal bilateral upper extremity information systems professor strength, thumb extension, flexion and extension of the wrist, and sensation throughout the upper extremities.) - Neuro Neuro: Alert and oriented X 3, Normal speech Eye Opening: Spontaneous Motor: Obeys Commands Verbal: Oriented GCS Score: 15 Results - Vitals Vitals: Vital Signs - 24 hr 06/01/22 06/01/22 15:06 16:32 Temperature 37.3 C Heart Rate 85 86 Respiratory 20 18 Rate Blood Pressure 142/87 H 110/81 H O2 Saturation 95 94 Oxygen O2 Source Room air - Labs Labs: Laboratory Tests 06/01/22 15:02 INR (Fingerstick) 2.6 H - Rads (name of study) C Spine CT - No acute trauma, DDD, grade 1 anterolisthesis of C4 on C5, severe sternoclavicular OA Radiology: Final report received, EMP read indepedently PD Medical Decision Making - ED course ED course: 81-year-old gentleman with atraumatic neck pain, no acute findings on CT. He was feeling much better after hydrocodone here. Nothing to suggest referred pain from cardiac cause. It is reproducible with motion and palpation. Departure - Departure Disposition: 01 Home, Self Care Clinical Impression: Anticoagulant long-term use, Neck pain Condition: Good Record reviewed to determine appropriate education?: Yes Instructions: ED Neck Pain No Trauma Prescriptions: HYDROcod/ACETAM 5/325 [[place] 5/325] 1 - 2 tab PO Q6H PRN #15 tablet PRN Reason: Pain Comments: I sent the prescription electronically to [facility] in [place]. Return for new or worsening symptoms. Follow-up with your primary care physician, next available appointment for recheck. I am prescribing a short course of narcotic pain medication for you. These are potentially dangerous and addictive medications that should be used carefully. These medications may constipate you. Take an ufvd-[id number] stool softener (docusate) twice daily with plenty of water while taking these medications. If you go 24 hours without a bowel movement, take [id number]-nhu-atohrsf miralax, per package instructions. Do not drink or drive while taking these medications. If you received narcotic or sedating medications while in the emergency department, do not drive for 24 hours. Store this medication in a safe, secure place and out of reach of children. It is a violation of federal law to give or sell this medication to another person or to use in a manner other than prescribed. The ED will not refill narcotic prescriptions, including prescriptions lost or stolen. To dispose of unwanted medications: 1. [facility] at [address] in [place] has a medication drop box. They accept prescription medications (in pill form) Friday through Friday 9:00 a.m. to 5:00 p.m. 2. The [facility] [employer] accepts prescription medications (in pill form only) for disposal year round. Call for more information. 3. Contact the [facility] for the next [facility] sponsored prescription drug collection event. , [phone], or [phone]; Note that many narcotic pain relievers also contain Tylenol/acetaminophen. Please ensure that your total dose of acetaminophen from all sources does not exceed 3 g (3000 mg) per day. Discharge Date/Time: 06/01/22 16:41
--- NOTE | 2022-06-01 16:08 | CT Report ---
PROCEDURE: CERVICAL SPINE WO INDICATIONS: neck pain TECHNIQUE: Noncontrast 3 mm thick sections acquired from the skull base to the T4 level. Sagittal and coronal r eformats were then constructed. For radiation dose reduction, the following was used: automated exp osure control, adjustment of mA and/or kV according to patient size. COMPARISON: None. FINDINGS: Image quality: Excellent. Bones: No fractures or dislocations. There is straightening of normal cervical lordosis. Loss of dis c height, degenerative endplate changes and bilateral facet hypertrophic changes are noted throughout cervical spine causing mild central canal stenosis and bilateral neural foraminal narrowing more not ably at C4-5 and C5-6 levels. 3 mm anterolisthesis of C4 on C5 is also seen. Visualized superior ribs are intact. Moderate to severe osteophytic changes are noted involving bilateral sternoclavicular j oints. Soft tissues: Prevertebral soft tissues are normal in thickness. No paravertebral hematomas. No ap ical pneumothoraces. IMPRESSION: 1. No cervical spine fracture or dislocation. 2. Degenerative disc disease throughout cervical spine as described in detail above. Grade 1 anteroli sthesis of C4 on C5. 3. 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 Reviewed by: Zia Fritz MD on 06/01/2022 4:06 PM PST Approved by: Zia Fritz MD on 06/01/2022 4:06 PM PST Station ID: [id number]
[2022-06-01 16:33] VITALS: BP 110/81
== END 2022-06-01 16:41 | disposition home or self-care (01) ==
LOC: ED 14:45
DX: M54.2 Cervicalgia (principal); I48.91 Unspecified atrial fibrillation; Z79.01 Long term (current) use of anticoagulants; Z79.899 Other long term (current) drug therapy; Z95.0 Presence of cardiac pacemaker
CPT/HCPCS: 36416; 72125; 85610; 99283; 99284; A9270

== ENCOUNTER 2023-05-26 08:00 | Outpatient (CLI) | payer MEDICARE ==
--- NOTE | 2023-05-26 15:48 | XRAY Report ---
PROCEDURE: Chest 2V INDICATIONS: ACUTE COVID-19 TECHNIQUE: 2 views of the chest were acquired. COMPARISON: Chest radiograph March 11, 2021. FINDINGS: Surgical changes and devices: Left-sided pacer electrodes terminate in expected positions. Lungs and pleura: No pleural effusions or pneumothorax. Bilateral diffuse subtle reticulonodular opa cities. Mediastinum: Mediastinal contours appear normal. Heart size is normal. Aortic arch is calcified, in dicating atherosclerosis. Bones and chest wall: No suspicious bony lesions. Overlying soft tissues appear unremarkable. IMPRESSION: Bilateral diffuse subtle reticulonodular opacities which may be secondary to viral pneumonia. Reviewed by: Buddy Lerma MD on 05/26/2023 3:47 PM PST Approved by: Buddy Lerma MD on 05/26/2023 3:47 PM PST Station ID: [id number]
== END 2023-05-26 23:59 | disposition home or self-care (01) ==
LOC: DI.S 08:00
PROVIDERS: ATTEND Registered Nurse
DX: R91.8 Other nonspecific abnormal finding of lung field (principal); U07.1 COVID-19; R53.83 Other fatigue; R05.1 Acute cough